=== PATIENT | male | born 1985 | race Two or more races ===

== ENCOUNTER → 2022-01-06 | Emergency (ER) | payer OTHER | END | disposition left against medical advice (07) | LOC: EDUNIT# 22:43 → EDBD 22:46 → ER 22:50 | DX: R52 Pain, unspecified (principal); Z53.21 Procedure and treatment not carried out due to patient leaving prior to being seen by health care provider ==

== ENCOUNTER → 2022-01-18 | Emergency (ER) | payer MEDICAID, OTHER ==
[~2022-01-18] MED LIST: ONDANSETRON ODT 4 MG TAB PO ONE
== END | disposition home or self-care (01) ==
LOC: EDUNIT# 15:42 → EDBD 15:49 → ER 15:49
DX: F10.129 Alcohol abuse with intoxication, unspecified (principal); Y90.9 Presence of alcohol in blood, level not specified

== ENCOUNTER 2022-02-09 23:01 | Emergency (ER) | payer MEDICAID ==
[~2022-02-09] VITALS: Ht 162.6 cm; Wt 65.0 kg
[2022-02-09] MEDS ORDERED: SODIUM CHLORIDE 0.9% 1,000 ML IV ONE (23:15)
[2022-02-09] MEDS ORDERED: ONDANSETRON HCL 4 MG/2 ML VIAL IV ONE (23:15)
[2022-02-09 23:31] LABS: Basophils # (auto) 0 10 ^3/uL (0-0.2); Eosinophils # (auto) 0 10 ^3/uL (0-0.8); Lymphocytes # (auto) 1.3 10 ^3/uL (0.4-5.4); Monocytes # (auto) 0.3 10 ^3/uL (0-1.3); Neutrophils # (auto) 2.7 10 ^3/uL (1.6-8.6); Red Blood Cells 3.81 10^6/uL (4.5-5.90); White Blood Cell 4.3 10^3/uL (4.4-10.8)
[2022-02-09 23:33] LABS: Basophils % (auto) 0.4 % (0.0-2.0); Eosinophils % (auto) 0.5 % (0.0-7.0); Hemoglobin 12.8 g/dL (13.5-17.5); Lymphocytes % (auto) 29.5 % (10.0-50.0); Mean Corpuscular Hemoglobin 33.5 pg (28.0-32.0); Mean Corpuscular Hgb Conc. 32.8 g/dL (32.0-36.0); Mean Corpuscular Volume 102.4 fL (80.0-100.0); Monocytes % (auto) 6.8 % (0.0-12.0); Neutrophils % (auto) 62.8 % (37.0-80.0); Nucleated Red Blood Cells % 0.1 %; Red Cell Distribution Width 14.5 % (11.8-14.3)
[2022-02-09 23:51] LABS: Albumin 3.9 g/dL (3.4-5.0); BUN/Creatinine Ratio 6.2; Calcium 8.3 mg/dL (8.5-10.1); Potassium 4.2 mmol/L (3.5-5.1)
[2022-02-09 23:53] LABS: Bilirubin, Total 0.5 mg/dL (0.2-1.0); Total Protein 8.1 g/dL (6.4-8.2)
[2022-02-10 05:20] VITALS: BP 115/64
== END 2022-02-10 05:29 | disposition home or self-care (01) ==
LOC: EDBD 23:01 → ER 23:01 → EDUNIT# 23:01 → ER 02-10 05:29
DX: F10.129 Alcohol abuse with intoxication, unspecified (principal); Y90.8 Blood alcohol level of 240 mg/100 ml or more
CPT/HCPCS: 36415; 71045; 80053; 83690; 84484; 85025; 96360; 99284; J7030

== ENCOUNTER 2022-08-07 05:26 | Emergency (ER) | payer MEDICAID ==
[~2022-08-07] VITALS: Ht 162.6 cm; Wt 70.4 kg
[2022-08-07 07:14] LABS: Basophils # (auto) 0 10 ^3/uL (0-0.2); Basophils % (auto) 0.9 % (0.0-2.0); Eosinophils # (auto) 0 10 ^3/uL (0-0.8); Eosinophils % (auto) 0.3 % (0.0-7.0); Hematocrit 33.6 % (41.0-53.0); Hemoglobin 11.3 g/dL (13.5-17.5); Lymphocytes % (auto) 20.4 % (10.0-50.0); Mean Corpuscular Hemoglobin 33.4 pg (28.0-32.0); Mean Corpuscular Hgb Conc. 33.7 g/dL (32.0-36.0); Mean Corpuscular Volume 99.1 fL (80.0-100.0); Monocytes # (auto) 0.3 10 ^3/uL (0-1.3); Monocytes % (auto) 7.2 % (0.0-12.0); Neutrophils # (auto) 3.4 10 ^3/uL (1.6-8.6); Neutrophils % (auto) 71.2 % (37.0-80.0); Red Blood Cells 3.39 10^6/uL (4.5-5.90); Red Cell Distribution Width 15.7 % (11.8-14.3); White Blood Cell 4.8 10^3/uL (4.4-10.8)
[2022-08-07 07:36] LABS: Albumin 3.9 g/dL (3.4-5.0); BUN/Creatinine Ratio 12.3; Calcium 8.7 mg/dL (8.5-10.1); Potassium 3.8 mmol/L (3.5-5.1)
[2022-08-07 07:39] LABS: Bilirubin, Total 0.6 mg/dL (0.2-1.0); Total Protein 7.9 g/dL (6.4-8.2)
[2022-08-07] MEDS ORDERED: cefTRIAXone SOD 1,000 MG VL IM ONE (08:15)
[2022-08-07] MEDS ORDERED: BACDST PO (08:26)
[2022-08-07] MEDS ORDERED: CEPH-510 PO (08:26)
[2022-08-07] MEDS ORDERED: LIDOCAINE 1% HCL (LOCAL ANESTH.) INJ 20ML MDV ID ONE (09:15)
[2022-08-07 11:08] VITALS: BP 132/74
== END 2022-08-07 11:08 | disposition home or self-care (01) ==
LOC: ER 05:26
DX: L03.011 Cellulitis of right finger (principal); R07.89 Other chest pain; S60.031A Contusion of right middle finger without damage to nail, initial encounter; W57.XXXA Bitten or stung by nonvenomous insect and other nonvenomous arthropods, initial encounter; Y93.89 Activity, other specified; Y92.89 Other specified places as the place of occurrence of the external cause; Y99.8 Other external cause status
CPT/HCPCS: 36415; 71045; 73140; 80053; 83605; 84484; 85025; 87040; 93005; 96372; 99285; J0696

== ENCOUNTER 2022-12-17 08:17 | Emergency (ER) | payer MEDICAID ==
[~2022-12-17] VITALS: Ht 160 cm; Wt 65.1 kg
[~2022-12-17 08:17] MED LIST changes: +BACDST PO; +CEPH-510 PO; -ONDANSETRON ODT 4 MG TAB PO ONE
[2022-12-17 09:14] LABS: Basophils # (auto) 0.1 10 ^3/uL (0-0.2); Basophils % (auto) 1.2 % (0.0-2.0); Eosinophils # (auto) 0.1 10 ^3/uL (0-0.8); Hematocrit 36.4 % (41.0-53.0); Hemoglobin 12.5 g/dL (13.5-17.5); Lymphocytes # (auto) 2.6 10 ^3/uL (0.4-5.4); Lymphocytes % (auto) 51.5 % (10.0-50.0); Mean Corpuscular Hemoglobin 32.7 pg (28.0-32.0); Mean Corpuscular Hgb Conc. 34.3 g/dL (32.0-36.0); Mean Corpuscular Volume 95.6 fL (80.0-100.0); Monocytes # (auto) 0.7 10 ^3/uL (0-1.3); Neutrophils # (auto) 1.7 10 ^3/uL (1.6-8.6); Neutrophils % (auto) 33.3 % (37.0-80.0); Nucleated Red Blood Cells % 0.6 %; Red Blood Cells 3.81 10^6/uL (4.5-5.90); Red Cell Distribution Width 15.3 % (11.8-14.3); White Blood Cell 5.1 10^3/uL (4.4-10.8)
[2022-12-17 09:32] LABS: Albumin 4.3 g/dL (3.4-5.0); Calcium 8.6 mg/dL (8.5-10.1); Potassium 3.6 mmol/L (3.5-5.1)
[2022-12-17 09:39] LABS: BUN/Creatinine Ratio 6.9 (10.0-20.0); Bilirubin, Total 0.6 mg/dL (0.2-1.0); Total Protein 8.7 g/dL (6.4-8.2)
[2022-12-17 10:07] LABS: INR 0.9 (0.9-1.15); Partial Thromboplastin Time 22.5 sec (24.6-33.4)
[2022-12-17 12:39] LABS: Urine Bacteria NONE SEEN /hpf (None Seen); Urine Blood Negative /uL (Negative); Urine Specific Gravity 1.002 (1.001-1.035); Urine WBC <1 /hpf (0 - 3)
[2022-12-17 17:15] VITALS: BP 115/80
== END 2022-12-17 17:30 | disposition home or self-care (01) ==
LOC: ER 08:17
DX: S40.022A Contusion of left upper arm, initial encounter (principal); F10.129 Alcohol abuse with intoxication, unspecified; M79.601 Pain in right arm; M25.512 Pain in left shoulder; M25.511 Pain in right shoulder; Y90.8 Blood alcohol level of 240 mg/100 ml or more; W18.39XA Other fall on same level, initial encounter; Y93.89 Activity, other specified; Y92.89 Other specified places as the place of occurrence of the external cause; Y99.8 Other external cause status
CPT/HCPCS: 36415; 70450; 71045; 73060; 80053; 80320; 81001; 85025; 85610; 85730

== ENCOUNTER 2023-02-15 14:01 | Emergency (ER) | payer MEDICAID ==
[~2023-02-15] VITALS: Ht 165.1 cm; Wt 65.0 kg
[2023-02-15 14:12] VITALS: BP 120/69; PULSE 85; RESP 16; O2SAT 100
[2023-02-15] MEDS ORDERED: SODIUM CHLORIDE 0.9% 1,000 ML IVB ONE (14:15)
[2023-02-15 14:58] LABS: Basophils # (auto) 0.1 10 ^3/uL (0-0.2); Basophils % (auto) 1.4 % (0.0-2.0); Eosinophils # (auto) 0 10 ^3/uL (0-0.8); Eosinophils % (auto) 0.4 % (0.0-7.0); Hemoglobin 13.8 g/dL (13.5-17.5); Lymphocytes # (auto) 1.1 10 ^3/uL (0.4-5.4); Lymphocytes % (auto) 27.8 % (10.0-50.0); Mean Corpuscular Hemoglobin 32.5 pg (28.0-32.0); Mean Corpuscular Hgb Conc. 33.7 g/dL (32.0-36.0); Mean Corpuscular Volume 96.4 fL (80.0-100.0); Monocytes # (auto) 0.3 10 ^3/uL (0-1.3); Monocytes % (auto) 8.6 % (0.0-12.0); Neutrophils # (auto) 2.5 10 ^3/uL (1.6-8.6); Neutrophils % (auto) 61.8 % (37.0-80.0); Nucleated Red Blood Cells % 0.6 %; Red Blood Cells 4.25 10^6/uL (4.5-5.90); Red Cell Distribution Width 15.8 % (11.8-14.3); White Blood Cell 4.1 10^3/uL (4.4-10.8)
[2023-02-15 15:03] LABS: Albumin 3.8 g/dL (3.4-5.0); Calcium 8.6 mg/dL (8.5-10.1); Potassium 3.6 mmol/L (3.5-5.1)
[2023-02-15 15:09] LABS: BUN/Creatinine Ratio 7.8 (10.0-20.0); Bilirubin, Total 0.2 mg/dL (0.2-1.0); Total Protein 8.4 g/dL (6.4-8.2)
== END 2023-02-15 16:24 | disposition left against medical advice (07) ==
LOC: EDBD 14:01 → ER 14:01
DX: F10.129 Alcohol abuse with intoxication, unspecified (principal); R41.82 Altered mental status, unspecified; Y90.8 Blood alcohol level of 240 mg/100 ml or more
CPT/HCPCS: 36415; 70450; 80053; 80320; 85025; 96360; 99284; J7030

== ENCOUNTER 2023-03-01 12:52 | Emergency (ER) | payer MEDICAID ==
[~2023-03-01] VITALS: Ht 162.6 cm; Wt 68.0 kg
[2023-03-01] MEDS ORDERED: SODIUM CHLORIDE 0.9% 1,000 ML IVB ONE (13:00)
[2023-03-01 13:46] LABS: Basophils # (auto) 0 10 ^3/uL (0-0.2); Basophils % (auto) 0.9 % (0.0-2.0); Eosinophils # (auto) 0 10 ^3/uL (0-0.8); Eosinophils % (auto) 0.5 % (0.0-7.0); Hematocrit 37.9 % (41.0-53.0); Hemoglobin 12.3 g/dL (13.5-17.5); Lymphocytes # (auto) 1.6 10 ^3/uL (0.4-5.4); Lymphocytes % (auto) 42.7 % (10.0-50.0); Mean Corpuscular Hemoglobin 31.9 pg (28.0-32.0); Mean Corpuscular Hgb Conc. 32.5 g/dL (32.0-36.0); Mean Corpuscular Volume 98.2 fL (80.0-100.0); Monocytes # (auto) 0.3 10 ^3/uL (0-1.3); Monocytes % (auto) 6.9 % (0.0-12.0); Neutrophils # (auto) 1.8 10 ^3/uL (1.6-8.6); Nucleated Red Blood Cells % 0.2 %; Red Blood Cells 3.86 10^6/uL (4.5-5.90); Red Cell Distribution Width 16.1 % (11.8-14.3); White Blood Cell 3.7 10^3/uL (4.4-10.8)
[2023-03-01 13:55] LABS: Albumin 3.4 g/dL (3.4-5.0); Potassium 3.4 mmol/L (3.5-5.1)
[2023-03-01 14:03] LABS: BUN/Creatinine Ratio 7.4 (10.0-20.0)
[2023-03-01 14:04] LABS: Bilirubin, Total 0.4 mg/dL (0.2-1.0); Total Protein 7.5 g/dL (6.4-8.2)
[2023-03-01 15:05] VITALS: BP 105/63; PULSE 60; RESP 14; TEMP 97.9; O2SAT 90
[2023-03-01 15:15] VITALS: PULSE 60
== END 2023-03-01 18:18 | disposition left against medical advice (07) ==
LOC: EDBD 12:52 → ER 12:52
DX: F10.129 Alcohol abuse with intoxication, unspecified (principal); Z79.899 Other long term (current) drug therapy; Y90.0 Blood alcohol level of less than 20 mg/100 ml
CPT/HCPCS: 36415; 80053; 80320; 85025; 96360; 99283; J7030

== ENCOUNTER 2024-03-22 18:05 | Emergency (ER) | payer MEDICAID ==
[~2024-03-22] VITALS: Ht 170.2 cm; Wt 68.1 kg
[2024-03-22 18:34] VITALS: RESP 14; O2SAT 97
[2024-03-22] MEDS: SODIUM CHLORIDE 0.9% 2,000 ML IV ONE (18:36)
[2024-03-22 19:07] LABS: Basophils # (auto) 0 10 ^3/uL (0-0.2); Eosinophils # (auto) 0 10 ^3/uL (0-0.8); Lymphocytes # (auto) 1.3 10 ^3/uL (0.4-5.4); Neutrophils # (auto) 2.9 10 ^3/uL (1.6-8.6); Nucleated Red Blood Cells % 0.1 %
[2024-03-22 19:09] LABS: Basophils % (auto) 0.9 % (0.0-2.0); Eosinophils % (auto) 0.4 % (0.0-7.0); Hematocrit 38.1 % (41.0-53.0); Hemoglobin 12.9 g/dL (13.5-17.5); Lymphocytes % (auto) 28.2 % (10.0-50.0); Mean Corpuscular Hemoglobin 32.7 pg (28.0-32.0); Mean Corpuscular Hgb Conc. 33.9 g/dL (32.0-36.0); Mean Corpuscular Volume 96.4 fL (80.0-100.0); Monocytes # (auto) 0.4 10 ^3/uL (0-1.3); Monocytes % (auto) 7.6 % (0.0-12.0); Neutrophils % (auto) 62.9 % (37.0-80.0); Red Blood Cells 3.95 10^6/uL (4.5-5.90); Red Cell Distribution Width 15.7 % (11.8-14.3); White Blood Cell 4.7 10^3/uL (4.4-10.8)
[2024-03-22 19:14] LABS: Chloride 106 mmol/L (98-107); Potassium 3.6 mmol/L (3.5-5.1); Sodium 138 mmol/L (136-145)
[2024-03-22 19:15] LABS: Anion Gap 10 (5-15); Carbon Dioxide 22 mmol/L (20-30)
[2024-03-22 19:16] LABS: Calcium 9.2 mg/dL (8.7-10.4)
[2024-03-22 19:21] LABS: Glucose 148 mg/dL (74-106)
[2024-03-22 19:29] LABS: BUN/Creatinine Ratio 5.8 (10.0-20.0); Blood Urea Nitrogen < 5 mg/dL (9-23)
[2024-03-22 19:39] LABS: Blood Alcohol 501.9 mg/dL (<10)
[2024-03-22 19:48] LABS: Platelet Estimate Decreased
[2024-03-22 19:49] LABS: Platelet Count (auto) 84 10^3/uL (140-450)
[2024-03-22 20:43] VITALS: TEMP 97.6
[2024-03-22 21:35] VITALS: PULSE 88; RESP 16; O2SAT 98
[2024-03-22 22:52] VITALS: BP 124/72; PULSE 84; RESP 14; O2SAT 97
== END 2024-03-22 23:13 | disposition home or self-care (01) ==
LOC: ER 18:05 → EDBD 18:05 → ER 23:13
DX: F10.129 Alcohol abuse with intoxication, unspecified (principal); R56.9 Unspecified convulsions; Z79.899 Other long term (current) drug therapy; Y90.0 Blood alcohol level of less than 20 mg/100 ml
CPT/HCPCS: 36415; 80048; 80320; 85025; 96360; 96361; 99285; J7030

== ENCOUNTER 2024-06-05 14:43 | Emergency (ER) | payer MEDICAID ==
[2024-06-05] MEDS ORDERED: THIAMINE 100mg/ml INJ (200mg/2ml VIAL) IV ONE (15:00)
[2024-06-05] MEDS ORDERED: SODIUM CHLORIDE 0.9% 1,000 ML IV ONE ×2 (15:00)
--- NOTE | 2024-06-05 15:04 | ED.PDOC ---
Altered Mental Status HPI Comments 39 year old male HRARY presents to the ED with chief complaint of ETOH abuse. EMS reports patient was found by a bystander laying back on a concrete sidewalk. Patient relays that he has been experiencing SOB, but was noted to be intoxicated with ETOH. Patient denies any N/V/D, chest pain, SOB, dizziness, headache, or fever. Time Seen by MD: 14:58 Primary Care Provider: UNKNOWN Reviewed Notes: Nurses Notes, Auto Body Estimator Notes, Medications, Allergies Allergies: Coded Allergies: NO KNOWN ALLERGIES (Unverified , 02/09/22) Home Meds Active Scripts Sulfamethoxazole W/Trimethopri (Bactrim Ds Tablet) 1 Tab Tb, 1 TAB PO BID for 10 Days, #20 TAB 0 Refills Prov:MADELINE RAMIREZ INSTRUCTIONAL DEVELOPER 08/07/22 Cephalexin ( Keflex 500) 500 Mg Cap, 1 CAP PO QID for 10 Days, #40 CAP 0 Refills Prov:MADELINE RAMIREZ [facility] 08/07/22 Information Source: Patient, Emergency Med Personnel Mode of Arrival: EMS Severity: Moderate Timing: Hours Duration: Since onset Prehospital treatment: None Quality: Change in Behavior Recent: None History of: None Past Medical History PAST MEDICAL HISTORY: Seizures Surgical History: Denies all surgeries Family History Family History: No family hx of Cancer, No family hx of DM, No family hx of Heart echo, No family hx of HTN, No family hx ofKidney echo, No family hx of Liver echo, No family hx of Lung echo, No family hx of Stroke Social History Smoker: Non-Smoker Alcohol: Heavy Drugs: Denies Drug Use Lives In: Home Constitutional: denies: chills, diaphoresis, fatigue, fever, malaise, sweats, weakness, others EENTM: denies: blurred vision, double vision, ear bleeding, ear discharge, ear drainage, ear pain, ear ringing, eye pain, eye redness, hearing loss, mouth pain, mouth swelling, nasal discharge, nose bleeding, nose congestion, nose pain, photophobia, tearing, throat pain, throat swelling, voice changes, others Respiratory: reports: shortness of breath; denies: cough, hemoptysis, orthopnea, SOB at rest, SOB with excertion, stridor, wheezing, others Cardiovascular: denies: chest pain, dizzy spells, diaphoresis, Dyspnea on exertion, edema, irregular heart beat, left arm pain, lightheadedness, palpitations, PND, syncope, others Gastrointestinal: denies: abdomen distended, abdominal pain, blood streaked bowels, constipated, diarrhea, dysphagia, difficulty swallowing, hematemesis, melena, nausea, poor appetite, poor fluid intake, rectal bleeding, rectal pain, vomiting, others Genitourinary: denies: burning, dysuria, flank pain, frequency, hematuria, incontinence, penile discharge, penile sore, pain, testicle pain, testicle swelling, urgency, others Neurological: denies: dizziness, fainting, headache, left sided numbness, left sided weakness, numbness, paresthesia, pre-existing deficit, right sided numbness, right sided weakness, seizure, speech problems, tingling, tremors, w eakness, others Musculoskeletal: denies: back pain, gout, joint pain, joint swelling, muscle pain, muscle stiffness, neck pain, others Integumetry: denies: bruises, change in color, change in hair/nails, dryness, laceration, lesions, lumps, rash, wounds, others Allergic/Immunocompromised: denies: Difficulty Healing, Frequent Infections, Hives, Itching, others Hematologic/Lymphatic: denies: anemia, blood clots, easy bleeding, easy bruising, swollen glands, others Endocrine: denies: excessive hunger, excessive sweating, excessive thirst, excessive urination, flushing, intolerance to cold, intolerance to heat, unexplained weight gain, unexplained weight loss, others Psychiatric: denies: anxiety, bipolar disorder, depression, hopeless, panic disorder, schizophrenia, sleepless, suicidal, others All Other Systems: Reviewed and Negative Physical Exam General Appearance: Moderate Distress, Normal HEENT: Normal ENT Inspection, PERRL/EOMI Neck: Full Range of Motion, Non-Tender, Normal, Normal Inspection Respiratory: Chest Non-Tender, Lungs Clear, No Accessory Muscle Use, No Respiratory Distress, Normal Breath Sounds Cardiovascular: No Edema, No JVD, No Murmur, No Gallop, Normal Peripheral Pulses, Regular Rate/Rhythm Breast Exam: Deferred Gastrointestinal: No Organomegaly, Non Tender, No Pulsatile Mass, Normal Bowel Sounds, Soft Genitalia: Deferred Pelvic: Deferred Rectal: Deferred Extremities: No calf tenderness, Normal capillary refill, Normal inspection, Normal range of motion, Non-tender, No pedal edema Musculoskeletal : Apperance: Normal Neurologic: Alert, carpenter refrigerator II-XII nml as Tested, No Motor Deficits, Normal Affect, Normal Mood, No Sensory Deficits Cerebellar Function: NOT DONE Reflexes: NOT DONE Skin: Dry, Normal Color, Warm Peripheral Pulses: 3+ Radial (R), 3+ Radial (L) Lymphatic: No Adenopathy Was a procedure done? Was a procedure done?: No Differential Diagnosis (ALOC) Differential Diagnosis: Dehydration, DKA, ETOH Intoxication X-Ray, Labs, Meds, VS Patient alert. Alcohol abuse. Vitals stable. Answering all questions. Reviewed his previous visit. Establish intravenous access. Was given fluids. Was given thiamine. He is comfortable. Explained to the patient. Counseled patient on effects of drinking alcohol for 15 minutes. Was told to join alcoholic anonymous. Continue cardiac monitoring. Time of 1ST Reevaluation: 15:58 Reevaluation 1ST: Unchanged Patient Education/Counseling: Diagnosis, Treatment Family Education/Counseling: No Family Present Departure 1 Departure Time of Disposition: 15:07 Impression: Primary Impression: Alcohol intoxication Qualified Codes: F10.920 - Alcohol use, unspecified with intoxication, uncomplicated Disposition: 09 ADMITTED INPATIENT Admit to: Med Surg Condition: Guarded Critical Care Note Critical Care Time?: No Stability Stability form required: No Heart Score Heart Score: Heart Score Response (Comments) Value History N/A 0 EKG N/A 0 Age N/A 0 Risk Factors N/A 0 Troponin N/A 0 Total 0 I personally scribed for ASHLEY BOX MD ([email or web address]) on 06/05/24 at 15:04. Electronically submitted by Tom Torres ([email or web address]). ASHLEY BOX MD Jun 05, 2024 15:04
== END 2024-06-05 17:06 | disposition left against medical advice (07) ==
LOC: EDBD 14:43 → ER 14:43
DX: F10.129 Alcohol abuse with intoxication, unspecified (principal)

== ENCOUNTER 2024-07-21 15:20 | Emergency (ER) | payer MEDICAID ==
[~2024-07-21] VITALS: Ht 165.1 cm; Wt 68.1 kg
--- NOTE | 2024-07-21 15:42 | ED.PDOC ---
History of Present Illness HPI Comments 39 y/o M, with a Hx of seizures and EtOH abuse, is BIBA for c/o ALOC w/decrease responsiveness s/p EtOH intoxication, today. Per EMS report, bystanders called after finding the patient outside a private residence unconscious, with EtOH odor emanating from his breath, and being unable to awaken him. On scene, patient was still unresponsive to EMS staff attempts to awaken him, with pinpoint pupils and all remaining vitals within normal limits. En route, patient had IV access placed and began to respond to sternal rub. At time of assessment, patient still remained in intoxicated, unconscious state, with no additional symptoms reported by EMS staff. Further Hx cannot be obtained at this time, due to patient's condition and absence of family/nickel plater historians. Chief Complaint: ALOC Time Seen by MD: 15:30 Primary Care Provider: UNKNOWN Reviewed Notes: Nurses Notes, Operational Test Mechanic Notes, Medications, Allergies Allergies: Coded Allergies: NO KNOWN ALLERGIES (Unverified , 02/09/22) Home Meds Active Scripts Sulfamethoxazole W/Trimethopri (Bactrim Ds Tablet) 1 Tab Tb, 1 TAB PO BID for 10 Days, #20 TAB 0 Refills Prov:MADELINE RAMIREZ [facility] 08/07/22 Cephalexin ( Keflex 500) 500 Mg Cap, 1 CAP PO QID for 10 Days, #40 CAP 0 Refills Prov:MADELINE RAMIREZ [facility] 08/07/22 Information Source: Emergency Med Personnel Mode of Arrival: EMS Severity: Moderate Timing: Hours Duration: Since onset Prehospital treatment: 12 Lead EKG, Community Service Aide, Other (IV access) Past Medical History PAST MEDICAL HISTORY: Seizures Surgical History: Denies all surgeries Family History Family History: No family hx of Cancer, No family hx of DM, No family hx of Heart echo, No family hx of HTN, No family hx ofKidney echo, No family hx of Liver echo, No family hx of Lung ecoh, No family hx of Stroke Social History Smoker: Non-Smoker Alcohol: Heavy Drugs: Denies Drug Use Lives In: Home Neurological: reports: others (ALOC w/decrease responsiveness ) Physical Exam General Appearance: Moderate Distress HEENT: Normal ENT Inspection, Pharynx Normal, TMs Normal Neck: Full Range of Motion, Non-Tender, Normal, Normal Inspection Respiratory: Chest Non-Tender, Lungs Clear, No Accessory Muscle Use, No Respiratory Distress, Normal Breath Sounds Cardiovascular: No Edema, No JVD, No Murmur, No Gallop, Normal Peripheral Pulses, Regular Rate/Rhythm Breast Exam: Deferred Gastrointestinal: No Organomegaly, Non Tender, No Pulsatile Mass, Normal Bowel Sounds, Soft Genitalia: Deferred Pelvic: Deferred Rectal: Deferred Extremities: No calf tenderness, Normal capillary refill, Normal inspection, Normal range of motion, Non-tender, No pedal edema Musculoskeletal : Apperance: Normal Neurologic: Alert Cerebellar Function: NOT DONE Reflexes: NOT DONE Skin: Normal Color Peripheral Pulses: 3+ Radial (R), 3+ Radial (L) Lymphatic: No Adenopathy Was a procedure done? Was a procedure done?: No Differential Dx Considerations may include: EtOH intoxication, substance abuse, encephalopathy X-Ray, Labs, Meds, VS Vital Signs Date Time Temp Pulse Resp B/P (MAP) Pulse Ox O2 Delivery O2 Flow Rate FiO2 07/21/24 15:20 98.2 76 22 118/79 (92) 94 Patient opens his eyes to command. History of alcohol use. Comes here on a regular basis. Vitals stable. No obvious injuries. Moving all extremities. CT of the head was not done because he is responding. Establish intravenous access. Was given fluids. Was given thiamine. Reviewed his previous visit. Explained to the patient. Time of 1ST Reevaluation: 16:00 Reevaluation 1ST: Improved Patient Education/Counseling: Other (patient is altered ) Family Education/Counseling: No Family Present Departure 1 Departure Time of Disposition: 16:00 Impression: Primary Impression: Alcohol intoxication Qualified Codes: F10.920 - Alcohol use, unspecified with intoxication, uncomplicated Disposition: 09 ADMITTED INPATIENT Admit to: Med Surg Condition: Guarded Critical Care Note Critical Care Time?: No Stability Stability form required: No Heart Score Heart Score: Heart Score Response (Comments) Value History N/A 0 EKG N/A 0 Age N/A 0 Risk Factors N/A 0 Troponin N/A 0 Total 0 I personally scribed for ASHLEY BOX MD ([email or web address]) on 07/21/24 at 15:41. Electronically submitted by Lisandro Giron ([email or web address]). ASHLEY BOX MD Jul 21, 2024 15:41
[2024-07-21] MEDS: SODIUM CHLORIDE 0.9% 1,000 ML IV ONE (15:45)
[2024-07-21 16:13] LABS: Basophils # (auto) 0 10 ^3/uL (0-0.2); Basophils % (auto) 0.6 % (0.0-2.0); Eosinophils # (auto) 0 10 ^3/uL (0-0.8); Eosinophils % (auto) 0.5 % (0.0-7.0); Hematocrit 41.1 % (41.0-53.0); Hemoglobin 13.8 g/dL (13.5-17.5); Lymphocytes # (auto) 1.9 10 ^3/uL (0.4-5.4); Lymphocytes % (auto) 36.6 % (10.0-50.0); Mean Corpuscular Hemoglobin 32.8 pg (28.0-32.0); Mean Corpuscular Hgb Conc. 33.7 g/dL (32.0-36.0); Mean Corpuscular Volume 97.5 fL (80.0-100.0); Monocytes # (auto) 0.4 10 ^3/uL (0-1.3); Monocytes % (auto) 7.6 % (0.0-12.0); Neutrophils # (auto) 2.8 10 ^3/uL (1.6-8.6); Neutrophils % (auto) 54.7 % (37.0-80.0); Nucleated Red Blood Cells % 0.1 %; Platelet Count (auto) 211 10^3/uL (140-450); Red Blood Cells 4.22 10^6/uL (4.5-5.90); Red Cell Distribution Width 14.3 % (11.8-14.3); White Blood Cell 5.2 10^3/uL (4.4-10.8)
[2024-07-21 16:23] LABS: Chloride 103 mmol/L (98-107); Potassium 3.7 mmol/L (3.5-5.1); Sodium 137 mmol/L (136-145)
[2024-07-21 16:24] LABS: Anion Gap 11 (5-15); Calcium 9.6 mg/dL (8.7-10.4); Carbon Dioxide 23 mmol/L (20-31)
[2024-07-21 16:29] LABS: Glucose 93 mg/dL (74-106)
[2024-07-21 16:33] LABS: BUN/Creatinine Ratio 6.8 (10.0-20.0); Blood Urea Nitrogen < 5 mg/dL (9-23)
[2024-07-21 17:17] LABS: Blood Alcohol 525.1 mg/dL (<10)
[2024-07-21] MEDS: THIAMINE 100mg/ml INJ (200mg/2ml VIAL) IV ONE (17:54)
[2024-07-21] MEDS: SODIUM CHLORIDE 0.9% 1,000 ML IVB ONE (17:54)
[2024-07-21 20:18] VITALS: BP 136/66; PULSE 94; RESP 14; TEMP 98.2; O2SAT 100
--- NOTE | 2024-07-21 20:18 | ED.PDOC ---
Departure 1 Departure Time of Disposition: 20:17 (He is now clinically sober A&O x3 and wants to go home. Family we will take him home he lives down the [address].) Impression: Primary Impression: Alcohol intoxication Qualified Codes: F10.920 - Alcohol use, unspecified with intoxication, uncomplicated Disposition: HOME / SELF CARE / HOMELESS Condition: Stable Additional Instructions: You were intoxicated. It is important to only drink in moderation. If you need help quitting you can call (HELP). If your symptoms worsen or you have any other concerns then please return to the ER. Discharged With: Self KIERSTEN WELLS MD Jul 21, 2024 20:18
== END 2024-07-21 20:18 | disposition home or self-care (01) ==
LOC: EDBD 15:20 → ER 15:20
DX: F10.129 Alcohol abuse with intoxication, unspecified (principal); Z79.899 Other long term (current) drug therapy; Y90.8 Blood alcohol level of 240 mg/100 ml or more
CPT/HCPCS: 36415; 80048; 80320; 85025; 96361; 96374; 99283; J3411; J7030

== ENCOUNTER 2024-07-21 22:29 | Emergency (ER) | payer MEDICAID ==
[~2024-07-21] VITALS: Ht 157.5 cm; Wt 66.5 kg
--- NOTE | 2024-07-21 23:29 | DVH ---
CLINICAL HISTORY: fall with headstrike TECHNIQUE: Helical imaging carried out from skull base to vertex without intravenous contrast. This e xam was performed according to our departmental dose optimization program. Up-to-date CT equipment an d radiation dose reduction techniques are utilized as appropriate. CTDIVol: [CTDIvol] mGy DLP: 1150.79 mGy-cm WID: COMPARISON: CT HEAD WITHOUT CONTRAST on DOS: 02/15/23, FINDINGS: There is generalized cerebral volume loss with concordant prominence of the subarachnoid spaces and v entricles. There is no midline shift or mass effect. The cazares white matter interfaces are maintained. The basal cisterns are patent. There is no evidence of acute intracranial hemorrhage or extra-axial fluid anisha ection. The mastoid air cells and visualized paranasal sinuses are well-aerated. Prior right partial ethmoidectomies. Cerumen in the left external auditory canal. Partially imaged scattered dental monica s in the maxillary teeth IMPRESSION: 1. No acute intracranial abnormality. 2. Generalized cerebral volume loss, greater than expected for patient age. 3. Partially imaged scattered dental caries in maxillary teeth.
--- NOTE | 2024-07-21 23:52 | ED.PDOC ---
History of Present Illness HPI Comments 39M with a history of alcoholism presents with a fall. Patient was discharged from the ER tonight after sobering up and went to the store bought liquor and began drinking. He then reports he was walking back home when he tripped and hit his head. Chief Complaint: Fall Injury Time Seen by MD: 22:49 Primary Care Provider: UNKNOWN Allergies: Coded Allergies: NO KNOWN ALLERGIES (Unverified , 02/09/22) Home Meds Active Scripts Sulfamethoxazole W/Trimethopri (Bactrim Ds Tablet) 1 Tab Tb, 1 TAB PO BID for 10 Days, #20 TAB 0 Refills Prov:MADELINE RAMIREZ VISUAL MERCHANDISING COORDINATOR 08/07/22 Cephalexin ( Keflex 500) 500 Mg Cap, 1 CAP PO QID for 10 Days, #40 CAP 0 Refills Prov:MADELINE RAMIREZ VISUAL MERCHANDISING COORDINATOR 08/07/22 Information Source: Patient Mode of Arrival: Ambulatory Past Medical History PAST MEDICAL HISTORY: Seizures Surgical History: Denies all surgeries Family History Family History: No family hx of Cancer, No family hx of DM, No family hx of Heart echo, No family hx of HTN, No family hx ofKidney echo, No family hx of Liver echo, No family hx of Lung echo, No family hx of Stroke Social History Smoker: Non-Smoker Alcohol: Heavy Drugs: Denies Drug Use Lives In: Home Unable to Obtain due to: Altered Mental Status Physical Exam General Appearance: Other (Intoxicated) HEENT: PERRL/EOMI Neck: Full Range of Motion, Non-Tender, Normal, Normal Inspection Respiratory: Chest Non-Tender, Lungs Clear, No Accessory Muscle Use, No Respiratory Distress, Normal Breath Sounds Cardiovascular: No Edema, No JVD, No Murmur, No Gallop, Normal Peripheral Pulses, Regular Rate/Rhythm Breast Exam: Deferred Gastrointestinal: No Organomegaly, Non Tender, No Pulsatile Mass, Normal Bowel Sounds, Soft Genitalia: Deferred Pelvic: Deferred Rectal: Deferred Extremities: Normal inspection Neurologic: Other (slurred speach) Cerebellar Function: NOT DONE Reflexes: NOT DONE Skin: NOT DONE Lymphatic: No Adenopathy Was a procedure done? Was a procedure done?: No Differential Dx Considerations may include: intracranial injury, alcohol intoxication Time of 1ST Reevaluation: 23:51 (Patient is still intoxicated) Reevaluation 1ST: Unchanged Patient Education/Counseling: Diagnosis, Treatment Family Education/Counseling: No Family Present Departure 1 Departure Time of Disposition: 23:52 (Patients ct scan was benign. Will observe until clinically sober.) Impression: Primary Impression: Alcohol intoxication Qualified Codes: F10.920 - Alcohol use, unspecified with intoxication, uncomplicated Additional Impression: Fall Qualified Codes: W19.XXXA - Unspecified fall, initial encounter Disposition: 30 STILL A PATIENT Condition: Fair Critical Care Note Critical Care Time?: No Stability Stability form required: No Heart Score Heart Score: Heart Score Response (Comments) Value History N/A 0 EKG N/A 0 Age N/A 0 Risk Factors N/A 0 Troponin N/A 0 Total 0 KIERSTEN WELLS MD Jul 21, 2024 23:52
[2024-07-22 07:54] VITALS: BP 94/56; PULSE 83; RESP 18; TEMP 98; O2SAT 98
== END 2024-07-22 10:48 | disposition left against medical advice (07) ==
LOC: ER 22:29
DX: F10.129 Alcohol abuse with intoxication, unspecified (principal); K02.9 Dental caries, unspecified; R41.82 Altered mental status, unspecified; W01.0XXA Fall on same level from slipping, tripping and stumbling without subsequent striking against object, initial encounter; Y93.01 Activity, walking, marching and hiking; Y92.89 Other specified places as the place of occurrence of the external cause; Y99.8 Other external cause status
CPT/HCPCS: 70450

== ENCOUNTER 2024-07-30 21:20 | Inpatient (IN) | payer MEDICAID ==
[~2024-07-30] VITALS: Ht 167.6 cm; Wt 67.8 kg
--- NOTE | 2024-07-30 22:03 | ED.PDOC ---
History of Present Illness HPI Comments 39 y/o M, with a Hx of EtOH abuse, is BIBA for c/o seizure-like activity, today. Per EMS report, patient's family called after suspecting on patient having an unwitnessed seizure in his room, this evening, after hearing loud noise in his room and finding him altered. He is commented to have had a Hx of EtOH abuse w/accompanying frequent ED visits for intoxication but has been sober for the past 2x days. On scene, patient was post-ictal, without any noted trauma or incontinence. Upon arrival to ED, patient was commented to have returned back to baseline and is resting. Patient has no other reported associated symptoms at this time. Chief Complaint: ALOC Time Seen by MD: 21:40 Primary Care Provider: UNKNOWN Reviewed Notes: Nurses Notes, Sheet Metal Engineer Notes, Medications, Allergies Allergies: Coded Allergies: NO KNOWN ALLERGIES (Unverified , 02/09/22) Home Meds Active Scripts Sulfamethoxazole W/Trimethopri (Bactrim Ds Tablet) 1 Tab Tb, 1 TAB PO BID for 10 Days, #20 TAB 0 Refills Prov:MADELINE RAMIREZ [facility] 08/07/22 Cephalexin ( Keflex 500) 500 Mg Cap, 1 CAP PO QID for 10 Days, #40 CAP 0 Refills Prov:MADELINE RAMIREZ [facility] 08/07/22 Information Source: Emergency Med Personnel Mode of Arrival: EMS Severity: Moderate Timing: Hours Duration: Since onset Prehospital treatment: 12 Lead EKG, Underground Foreman Past Medical History PAST MEDICAL HISTORY: Seizures Surgical History: Denies all surgeries Family History Family History: No family hx of Cancer, No family hx of DM, No family hx of Heart echo, No family hx of HTN, No family hx ofKidney echo, No family hx of Liver echo, No family hx of Lung echo, No family hx of Stroke Social History Smoker: Non-Smoker Alcohol: Heavy Drugs: Denies Drug Use Lives In: Home Neurological: reports: seizure All Other Systems: Reviewed and Negative (negative unless otherwise stated ab ove or in HPI) Physical Exam General Appearance: No Apparent Distress, Normal HEENT: Normal ENT Inspection, Pharynx Normal, TMs Normal Neck: Full Range of Motion, Non-Tender, Normal, Normal Inspection Respiratory: Chest Non-Tender, Lungs Clear, No Accessory Muscle Use, No Respiratory Distress, Normal Breath Sounds Cardiovascular: No Edema, No JVD, No Murmur, No Gallop, Normal Peripheral Pulses, Regular Rate/Rhythm Breast Exam: Deferred Gastrointestinal: No Organomegaly, Non Tender, No Pulsatile Mass, Normal Bowel Sounds, Soft Genitalia: Deferred Pelvic: Deferred Rectal: Deferred Extremities: No calf tenderness, Normal capillary refill, Normal inspection, Normal range of motion, Non-tender, No pedal edema Musculoskeletal : Apperance: Normal Neurologic: Alert, labor relations or personnel negotiator II-XII nml as Tested, No Motor Deficits, Normal Affect, Normal Mood, No Sensory Deficits Cerebellar Function: Normal Reflexes: Normal Skin: Dry, Normal Color, Warm Lymphatic: No Adenopathy Was a procedure done? Was a procedure done?: No Differential Dx Considerations may include: seizure, EtOH withdrawal X-Ray, Labs, Meds, VS Vital Signs Date Time Temp Pulse Resp B/P (MAP) Pulse Ox O2 Delivery O2 Flow Rate FiO2 07/31/24 01:16 97 18 138/90 (106) 97 07/31/24 00:00 100.4 100.4 07/30/24 22:20 100 18 98 Room Air* 0 21 07/30/24 22:13 98.0 100 18 153/91 (111) 98.0 07/30/24 21:29 98.0 100 24 153/91 (111) 98 Lab Test 07/31/24 00:15 07/30/24 22:24 Range/Units Lactic Acid Level 5.3 *H 5.8 *H 0.4-2.0 mmol/L White Blood Count 10.4 4.4-10.8 10^3/uL Red Blood Count 3.96 L 4.5-5.90 10^6/uL Hemoglobin 13.0 L 13.5-17.5 g/dL Hematocrit 38.6 L 41.0-53.0 % Mean Corpuscular Volume 97.7 80.0-100.0 fL Mean Corpuscular Hemoglobin 32.8 H 28.0-32.0 pg Mean Corpuscular Hemoglobin Concent 33.6 32.0-36.0 g/dL Red Cell Distribution Width 13.9 11.8-14.3 % Platelet Count 124 L 140-450 10^3/uL Mean Platelet Volume 8.4 6.9-10.8 fL Neutrophils (%) (Auto) 92.8 H 37.0-80.0 % Lymphocytes (%) (Auto) 3.0 L 10.0-50.0 % Monocytes (%) (Auto) 3.0 0.0-12.0 % Eosinophils (%) (Auto) 0.0 0.0-7.0 % Basophils (%) (Auto) 1.2 0.0-2.0 % Neutrophils # (Auto) 9.7 H 1.6-8.6 10 ^3/uL Lymphocytes # (Auto) 0.3 L 0.4-5.4 10 ^3/uL Monocytes # (Auto) 0.3 0-1.3 10 ^3/uL Eosinophils # (Auto) 0 0-0.8 10 ^3/uL Basophils # (Auto) 0.1 0-0.2 10 ^3/uL Nucleated Red Blood Cells 0.0 % Platelet Estimate Decreased Large Platelets Few Sodium Level 134 L 136-145 mmol/L Potassium Level 3.8 3.5-5.1 mmol/L Chloride Level 99 98-107 mmol/L Carbon Dioxide Level 22 20-31 mmol/L Anion Gap 13 5-15 Blood Urea Nitrogen < 5 L 9-23 mg/dL Creatinine 0.89 0.700-1.30 mg/dL Glomerular Filtration Rate Calc 113 >90 mL/min BUN/Creatinine Ratio 5.6 L 10.0-20.0 Serum Glucose 115 H 74-106 mg/dL Calcium Level 10.5 H 8.7-10.4 mg/dL Magnesium Level 1.7 1.6-2.6 mg/dL Total Bilirubin 0.8 0.2-1.0 mg/dL Aspartate Amino Transferase (AST) 35 13-40 U/L Alanine Aminotransferase (ALT) 26 7-40 U/L Alkaline Phosphatase 183 H 46-116 U/L Total Protein 8.4 H 5.7-8.2 g/dL Albumin 4.8 3.2-4.8 g/dL Levetiracetam Level Pending Plasma/Serum Blood Alcohol < 3.0 <10 mg/dL Current Medications Medications (Trade) Dose Ordered Sig/Igor Route Start Time Stop Time Status Last Admin Lorazepam (Ativan Inj) 2 mg ONCE ONCE IV 07/30/24 22:00 07/30/24 22:09 DC 07/30/24 23:15 Sodium Chloride 1,000 ml @ 1,000 mls/hr Q1H ONCE IVB 07/30/24 22:00 07/30/24 22:59 DC 07/30/24 23:40 Azithromycin 250 ml @ 125 mls/hr ONCE ONCE IV 07/31/24 00:00 07/31/24 01:59 07/31/24 01:10 Sodium Chloride 2,000 ml @ 1,000 mls/hr Q2H ONCE IV 07/31/24 00:00 07/31/24 01:59 07/31/24 00:44 Acetaminophen (Ofirmev) 1,000 mg ONCE ONCE IV 07/31/24 00:00 07/31/24 00:05 DC 07/31/24 00:42 [place] [address] Ph: [phone] DIAGNOSTIC IMAGING Diagnostic Imaging Report : [id number] Signed PATIENT: KOFI SCHMIDT ACCT: [id number] UNIT: [id number] : 1985 LOC: ER ROOM / BED: / AGE / SEX: 39 / M ADM STATUS: REG ER SERVICE 58 ORDERING PHYSICIAN: ROSE PERDUE MD PROCEDURE(s): HWOCT - HEAD WITHOUT CONTRAST REASON: aloc ORDER NUMBER(s): [id number], ACCESSION NUMBER(s): [id number] CT BRAIN WITHOUT CONTRAST HISTORY: aloc TECHNIQUE: Axial scans were obtained from the skull base through the vertex without contrast. Sagittal and coronal reformats were generated. One or more of the following radiation dose reduction techniques were used for this examination: automated exposure control, adjustment of the mA and/or kV according to patient size, use of iterative reconstruction technique. COMPARISON: CT HEAD WITHOUT CONTRAST on DOS: 07/21/24 FINDINGS: Generalized cerebral volume loss is again noted. No acute intracranial hemorrhage or evidence of large vessel territorial infarction identified at this time. No midline shift. The basilar cisterns are patent. The visualized paranasal sinuses and left mastoid air cells are clear. Partial opacification of the right mastoid air cells again noted. No grossly displaced calvarial fracture is identified. IMPRESSION: No acute intracranial findings. Other relatively chronic appearing changes as above. ATED BY: SEE LEE MD DICTATED DATE/TIME: 07/30/242247 SIGNED BY: SEE LEE MD SIGNED DATE/TIME: 07/30/242247 CC: Lactic acid is 5.8 and 5.3. 4 L of lactated ringer were ordered. Treated 100.4. The patient was given Tylenol Toradol It count is 124. Hemoglobin is 13. In is less than five and creatinine is 0.9 The patient will be admitted to the hospitalist for further evaluation and care. Time of 1ST Reevaluation: 22:10 Reevaluation 1ST: Unchanged Time of 2ND Reevaluation: 01:32 Reevaluation 2ND: Unchanged Patient Education/Counseling: Diagnosis, Treatment Family Education/Counseling: No Family Present Departure 1 Departure Time of Disposition: 01:35 Impression: Primary Impression: Altered mental status Qualified Codes: R41.82 - Altered mental status, unspecified Additional Impressions: Metabolic encephalopathy Toxic encephalopathy Qualified Codes: G92.9 - Unspecified toxic encephalopathy Thrombocytopenia Dehydration Alcohol withdrawal Disposition: ADMITTED INPATIENT Admit to: Tele Condition: Guarded Critical Care Note Critical Care Time?: Yes (45 min-critical care time only) Stability Stability form required: No Heart Score Heart Score: Heart Score Response (Comments) Value History N/A 0 EKG N/A 0 Age N/A 0 Risk Factors N/A 0 Troponin N/A 0 Total 0 I personally scribed for ROSE PERDUE MD ([email or web address]) on 07/30/24 at 22:03. Electronically submitted by Lisandro Giron ([email or web address]). I personally scribed for ROSE PERDUE MD ([email or web address]) on 07/30/24 at 23:54. Electronically submitted by Lisandro Giron ([email or web address]). ROSE PERDUE MD Jul 30, 2024 22:03
[2024-07-30 22:20] VITALS: PULSE 100; RESP 18; O2SAT 98
[2024-07-30 22:45] LABS: Basophils # (auto) 0.1 10 ^3/uL (0-0.2); Basophils % (auto) 1.2 % (0.0-2.0); Eosinophils # (auto) 0 10 ^3/uL (0-0.8); Hematocrit 38.6 % (41.0-53.0); Lymphocytes # (auto) 0.3 10 ^3/uL (0.4-5.4); Mean Corpuscular Hemoglobin 32.8 pg (28.0-32.0); Mean Corpuscular Hgb Conc. 33.6 g/dL (32.0-36.0); Mean Corpuscular Volume 97.7 fL (80.0-100.0); Monocytes # (auto) 0.3 10 ^3/uL (0-1.3); Neutrophils # (auto) 9.7 10 ^3/uL (1.6-8.6); Neutrophils % (auto) 92.8 % (37.0-80.0); Platelet Count (auto) 124 10^3/uL (140-450); Red Blood Cells 3.96 10^6/uL (4.5-5.90); Red Cell Distribution Width 13.9 % (11.8-14.3); White Blood Cell 10.4 10^3/uL (4.4-10.8)
--- NOTE | 2024-07-30 22:51 | DVH ---
CT BRAIN WITHOUT CONTRAST HISTORY: aloc TECHNIQUE: Axial scans were obtained from the skull base through the vertex without contrast. Sagitta l and coronal reformats were generated. One or more of the following radiation dose reduction techniq ues were used for this examination: automated exposure control, adjustment of the mA and/or kV accord ing to patient size, use of iterative reconstruction technique. COMPARISON: CT HEAD WITHOUT CONTRAST on DOS: 07/21/24 FINDINGS: Generalized cerebral volume loss is again noted. No acute intracranial hemorrhage or evidence of large vessel territorial infarction identified at thi s time. No midline shift. The basilar cisterns are patent. The visualized paranasal sinuses and left mastoid air cells are clear. Partial opacification of the right mastoid air cells again noted. No grossly displaced calvarial fracture is identified. IMPRESSION: No acute intracranial findings. Other relatively chronic appearing changes as above.
[2024-07-30 23:02] LABS: Alanine Aminotransferase 26 U/L (7-40); Anion Gap 13 (5-15); Aspartate Aminotransferase 35 U/L (13-40); Bilirubin, Total 0.8 mg/dL (0.2-1.0); Blood Alcohol 6.4 mg/dL (<10); Carbon Dioxide 22 mmol/L (20-31); Chloride 99 mmol/L (98-107); Magnesium 1.7 mg/dL (1.6-2.6); Potassium 3.8 mmol/L (3.5-5.1)
[2024-07-30 23:07] LABS: Albumin 4.8 g/dL (3.2-4.8); Alkaline Phosphatase 183 U/L (46-116); BUN/Creatinine Ratio 5.6 (10.0-20.0); Blood Urea Nitrogen < 5 mg/dL (9-23); Calcium 10.5 mg/dL (8.7-10.4); Glucose 115 mg/dL (74-106); Sodium 134 mmol/L (136-145); Total Protein 8.4 g/dL (5.7-8.2)
[2024-07-30] MEDS: LORazepam 2MG/ML-1ML VIAL IV ONE (23:15)
[2024-07-30] MEDS: LORazepam 2MG/ML-1ML VIAL IM ONE (23:20)
[2024-07-30 23:21] LABS: Lactic Acid w/Reflex 5.8 mmol/L (0.4-2.0)
[2024-07-30] MEDS: SODIUM CHLORIDE 0.9% 1,000 ML IVB ONE (23:40)
[2024-07-30 23:55] LABS: Large Platelets FEW; Platelet Estimate Decreased
[2024-07-31] MEDS: ACETAMINOPHEN IV 1000 MG/100ML (10MG/ML) IV ONE (00:42)
[2024-07-31] MEDS: SODIUM CHLORIDE 0.9% 2,000 ML IV ONE (00:44)
[2024-07-31] MEDS: AZITHROMYCIN 500MG/ 250ML 250 ML IV ONE (01:10)
[2024-07-31 01:51] LABS: Base Excess -3.1 mmol/L (-2.0-3.0)
[2024-07-31] MEDS: SODIUM CHLORIDE 0.9% 1,000 ML IV ONE (01:51)
[2024-07-31] MEDS: KETOROLAC TROMETH 30 MG/ML 1ML VIAL IV ONE (01:59)
[2024-07-31] MEDS ORDERED: LORazepam 2MG/ML-1ML VIAL IV PRN ×2 (02:30→07:45)
[2024-07-31] MEDS ORDERED: ONDANSETRON HCL 4 MG/2 ML VIAL IV PRN (02:30)
[2024-07-31] MEDS ORDERED: ACETAMINOPHEN 325 MG TAB PO PRN (02:30)
--- NOTE | 2024-07-31 03:02 | DVHHP2 ---
History of Present Illness Reason for Visit: Altered mental status History of Present Illness 39-year-old male presents for evaluation of altered mental status. Patient is currently lethargic oriented x2. Per ED records and personnel family members noted the patient altered in his room. They believe he had a seizure. Patient has a history of alcohol abuse and has ingested alcohol for the past two days. No further history could be obtained at the moment. Past Medical History Seizure Past Surgical History Denies Family History Noncontributory Smoke: No ALCOHOL: heavy Drugs: None Lives: with Family Review of Systems Review of Systems Review of systems are currently negative otherwise addressed in HPI. Allergies: Coded Allergies: NO KNOWN ALLERGIES (Unverified , 02/09/22) Medications Current Medications Medications Dose Ordered Sig/Igor Route Start Time Stop Time Status Last Admin Dose Admin Lorazepam 1 mg Q5MINP PRN IV 07/31/24 02:30 Levetiracetam 500 mg BID PO 07/31/24 10:00 Chlordiazepoxide HCl 25 mg Q6HPRN PRN PO 07/31/24 02:30 Ceftriaxone Sodium 50 ml @ 100 mls/hr DAILY@09 IV 07/31/24 09:00 Ondansetron HCl 4 mg Q4HP PRN IV 07/31/24 02:30 Acetaminophen 650 mg Q6HP PRN PO 07/31/24 02:30 Exam Vital Signs Vital Signs Date Time Temp Pulse Resp B/P (MAP) Pulse Ox O2 Delivery O2 Flow Rate FiO2 07/31/24 01:16 97 18 138/90 (106) 97 07/31/24 00:00 100.4 100.4 07/30/24 22:20 Room Air* 0 21 Exam Gen: 39-year-old male in mild distress. Skin: Warm, dry, normal color and texture, no rash. HEENT: Normocephalic atraumatic, mucous membranes moist and pink. Neck: Cervical and supraclavicular nodes normal without enlargement, trachea is midline, thyroid gland is normal without masses. Pulmonary: Clear to auscultation and percussion bilaterally. Cardiac: Regular rate and rhythm. No murmur Abdomen: Soft, nontender, nondistended, bowel sounds present all 4 quadrants, no guarding, no rigidity, no organomegaly. Extremities: No cyanosis, clubbing, no edema Neuro: Cranial nerves II through XII grossly intact, normal affect and speech, no focal motor deficits. Labs/Xrays ORDERING PHYSICIAN: ROSE PERDUE MD PROCEDURE(s): HWOCT - HEAD WITHOUT CONTRAST REASON: aloc ORDER NUMBER(s): [id number], ACCESSION NUMBER(s): [id number] CT BRAIN WITHOUT CONTRAST HISTORY: aloc TECHNIQUE: Axial scans were obtained from the skull base through the vertex without contrast. Sagittal and coronal reformats were generated. One or more of the following radiation dose reduction techniques were used for this examination: automated exposure control, adjustment of the mA and/or kV according to patient size, use of iterative reconstruction technique. COMPARISON: CT HEAD WITHOUT CONTRAST on DOS: 07/21/24 FINDINGS: Generalized cerebral volume loss is again noted. No acute intracranial hemorrhage or evidence of large vessel territorial infarction identified at this time. No midline shift. The basilar cisterns are patent. The visualized paranasal sinuses and left mastoid air cells are clear. Partial opacification of the right mastoid air cells again noted. No grossly displaced calvarial fracture is identified. IMPRESSION: No acute intracranial findings. Other relatively chronic appearing changes as above. Labs Test 07/31/24 01:47 07/31/24 00:15 07/30/24 22:24 Range/Units Blood Gas Specimen Type Arterial Blood Gas Sample Site Right radial Blood Gas Patient Temperature 37.0 Arterial Blood Date Drawn [id number] Arterial Blood pH 7.427 7.350-7.450 Arterial Blood Partial Pressure CO2 31.5 L 35.0-48.0 mmHg Arterial Blood Partial Pressure O2 134.7 H 83.0-108.0 mmHg Arterial Blood HCO3 20.3 L 21.0-28.0 mmol/L Arterial Blood Oxygen Saturation 98.7 H 94.0-98.0 % Arterial Blood Base Excess -3.1 L -2.0-3.0 mmol/L Arterial Blood Oxyhemoglobin 97.9 94.0-98.0 % Arterial Blood Carboxyhemoglobin 0.2 L 0.5-1.5 % Arterial Blood Methemoglobin 0.6 0.0-1.5 % Ortega Test Yes Blood Gas Total Hemoglobin 12.50 L 13.5-17.5 g/dL Blood Gas Modality Room air FiO2 % 21.0 Lactic Acid Level 5.3 *H 0.4-2.0 mmol/L White Blood Count 10.4 4.4-10.8 10^3/uL Red Blood Count 3.96 L 4.5-5.90 10^6/uL Hemoglobin 13.0 L 13.5-17.5 g/dL Hematocrit 38.6 L 41.0-53.0 % Mean Corpuscular Volume 97.7 80.0-100.0 fL Mean Corpuscular Hemoglobin 32.8 H 28.0-32.0 pg Mean Corpuscular Hemoglobin Concent 33.6 32.0-36.0 g/dL Red Cell Distribution Width 13.9 11.8-14.3 % Platelet Count 124 L 140-450 10^3/uL Mean Platelet Volume 8.4 6.9-10.8 fL Neutrophils (%) (Auto) 92.8 H 37.0-80.0 % Lymphocytes (%) (Auto) 3.0 L 10.0-50.0 % Monocytes (%) (Auto) 3.0 0.0-12.0 % Eosinophils (%) (Auto) 0.0 0.0-7.0 % Basophils (%) (Auto) 1.2 0.0-2.0 % Neutrophils # (Auto) 9.7 H 1.6-8.6 10 ^3/uL Lymphocytes # (Auto) 0.3 L 0.4-5.4 10 ^3/uL Monocytes # (Auto) 0.3 0-1.3 10 ^3/uL Eosinophils # (Auto) 0 0-0.8 10 ^3/uL Basophils # (Auto) 0.1 0-0.2 10 ^3/uL Nucleated Red Blood Cells 0.0 % Platelet Estimate Decreased Large Platelets Few Sodium Level 134 L 136-145 mmol/L Potassium Level 3.8 3.5-5.1 mmol/L Chloride Level 99 98-107 mmol/L Carbon Dioxide Level 22 20-31 mmol/L Anion Gap 13 5-15 Blood Urea Nitrogen < 5 L 9-23 mg/dL Creatinine 0.89 0.700-1.30 mg/dL Glomerular Filtration Rate Calc 113 >90 mL/min BUN/Creatinine Ratio 5.6 L 10.0-20.0 Serum Glucose 115 H 74-106 mg/dL Calcium Level 10.5 H 8.7-10.4 mg/dL Magnesium Level 1.7 1.6-2.6 mg/dL Total Bilirubin 0.8 0.2-1.0 mg/dL Aspartate Amino Transferase (AST) 35 13-40 U/L Alanine Aminotransferase (ALT) 26 7-40 U/L Alkaline Phosphatase 183 H 46-116 U/L Total Protein 8.4 H 5.7-8.2 g/dL Albumin 4.8 3.2-4.8 g/dL Plasma/Serum Blood Alcohol < 3.0 <10 mg/dL Assessment/Plan Assessment/Plan Assessment Acute encephalopathy Alcohol withdrawal History of seizures Plan Admit the patient to Med surge to the hospitalist Seizure precautions in place Resume home medications Continue treatment per orders. Plan discussed with: Patient My Orders Orders - SANTANA SANDHU Procedure Category Date Status Time Seizure Precautions ALISSA 07/31/[address] 02:23 Lorazepam 2mg/Ml Inj PHA 07/31/24 In Process (Ativan Inj) 02:30 Levetiracetam Tablet PHA 07/31/24 In Process (Keppra Tablet) 10:00 Chlordiazepoxide Hcl PHA 07/31/24 In Process Capsule (Librium Ca 02:30 Ceftriaxone 1gm/50ml PHA 07/31/24 In Process D5w (Rocephin) 09:00 Blood Culture PIPPA 07/31/24 Logged 02:23 Basic Metabolic Panel LAB 08/01/24 Verified 04:00 Admit ADMIT 07/31/24 Transmitted 02:23 Ondansetron Hcl PHA 07/31/24 In Process (Zofran) 02:30 Complete Blood Count LAB 08/01/24 Verified 04:00 Cardiac DIET 07/31/24 Transmitted Diet-2gna,Lofat,Lochol Breakfast Condition: Stable ALISSA 07/31/24 In Process 02:23 Acetaminophen Tablet PHA 07/31/24 In Process (Tylenol Tablet) 02:30 Bedrest With Bathroom ALISSA 07/31/24 In Process Privileg 02:23 Date of Service: Jul 31, 2024 Billing Provider: SANTANA SANDHU Common Visit Codes: [id number] INP/OBS CARE (HIGH) SANTANA SANDHU Jul 31, 2024 03:02
[2024-07-31 03:05] VITALS: PULSE 91; RESP 11; O2SAT 97
[2024-07-31 03:56] LABS: Amphetamine Screen, Urine Neg (NEGATIVE); Barbiturate Scree,Urine Neg (NEGATIVE); Benzodiazephine Screen, Urine Neg (NEGATIVE); Cannabinoid Screen, Urine Neg (NEGATIVE); Cocaine Screen, Urine Neg (NEGATIVE); Opiate Scree,Urine Neg (NEGATIVE); Phencyclidine Screen, Urine Neg (NEGATIVE)
[2024-07-31] MEDS: chlordiazePOXIDE HCL 25 MG CAP PO PRN (06:47)
[2024-07-31] MEDS: cefTRIAXone 1GM/50ML D5W 50 ML IV SCH (08:42)
[2024-07-31] MEDS: THIAMINE 100mg/ml INJ (200mg/2ml VIAL) IV ONE (08:42)
[2024-07-31] MEDS: FOLIC ACID 1 MG in D5W 5% 50 ML INJ ONE (09:15)
[2024-07-31] MEDS: levETIRAcetam 500 MG TAB PO SCH (10:06)
[2024-07-31 11:35] LABS: Urine Bacteria FEW /hpf (None Seen); Urine Blood Negative /uL (Negative); Urine Clarity Clear (Clear); Urine Color Colorless (Yellow); Urine Protein, UAD Negative (Negative); Urine Specific Gravity 1.006 (1.001-1.035); Urine Sperm PRESENT /hpf (None Seen); Urine Squamous Epithelial Cell None Seen /hpf (<5); Urine Urobilinogen Normal (Negative); Urine WBC <1 /hpf (0 - 3); Urine pH 5.5 (5.0-9.0)
[2024-07-31] MEDS: MAGNESIUM SULFATE 1GM/100ML 100 ML IV ONE (12:10)
[2024-07-31] MEDS: POTASSIUM EFFERVESENT TAB 25 MEQ PO ONE (12:10)
--- NOTE | 2024-07-31 15:12 | DVHPNRES ---
Progress Note Date Seen: Jul 31, 2024 Resident Creating Document: CHETNA KIRKPATRICK RESIDENT Medical Necessity Reason Pt with a Central, PICC or Fol: No Subjective Review of Systems Patient is 39 years old male with past medical history of seizure disorder alcoholic cirrhosis of liver, history of paroxysmal atrial fibrillation likely due to alcoholism presents to the ER with altered mental status. As per EEG record and also family members personnel patient was found altered in room. Family thought patient might have a seizure. As per family patient is alcoholic and has been yesterday alcohol for last couple of days. Patient reported being noncompliant with his Keppra medication for seizure. Initial lab workup revealed lactic acid 5.8, elevated CPK 363, WBC 10.4, hemoglobin 13, platelets 124, sodium 134, potassium 3.8, serum creatinine 0.89, lactic acidosis with lactic acid 5.8, calcium 10.5, magnesium 1.7, bilirubin 0.8, AST 35, ALT 26, alkaline phosphatase 183, albumin 4.8, UDS negative, alcohol< 6, analysis negative for UTI, UDS negative., CT head no acute intracranial hemorrhage or infarction. Past Medical History-Seizure, alcoholic cirrhosis, history of paroxysmal atrial fibrillation likely due to alcoholism Past Surgical History-Denies Social history-patient's alcoholic, denies smoking or drug abuse, lives at home Allergy- NKDA Personal History/ Social History- Patient was seen today at the bedside. Cardiovascular- deny acute chest pain or shortness of breath or cough or palpitation Respiratory- denies cough or short of breath or wheezing Gastrointestinal- denies any rectal bleeding, nausea or vomiting Musculoskeletal-denies acute joint swelling or tenderness or redness Neurological- denies acute dysarthria, dysphagia, change in vision Psychiatry- denies depression or SI or HI Skin- denies acute rash or purpura Patient was seen today for clinical evaluation. Labs and chart reviewed. Patient still with some confusion, patient is a poor historian. As per patient patient was noncompliant with his medication Keppra. Lactic acidosis resolved, elevated CPK. Patient had 1 seizure episode last night around 11:30 p.m. spoke to patient's sister SMITA PHELPS, , discussed patient's current medical condition, answered her questions and discussed the plan of care. Objective vital signs Vital Sign Date Time Temp Pulse Resp B/P (MAP) Pulse Ox O2 Delivery O2 Flow Rate FiO2 1/8/25 13:00 73 14 129/61 (83) 97 07/31/24 08:10 97.1 97.1 07/31/24 08:10 Room Air* 0 21 Total Intake and Output 07/30/24 07/30/24 07/31/24 15:00 23:00 07:00 Intake Total 3975 ml Balance 3975 ml medications Current Medications Medications Dose Ordered Sig/Igor Route Start Time Stop Time Status Last Admin Dose Admin Lorazepam 1 mg Q5MINP PRN IV 07/31/24 02:30 Levetiracetam 500 mg BID PO 07/31/24 10:00 07/31/24 10:06 500 MG Chlordiazepoxide HCl 25 mg Q6HPRN PRN PO 07/31/24 02:30 07/31/24 06:47 25 MG Ceftriaxone Sodium 50 ml @ 100 mls/hr DAILY@09 IV 07/31/24 09:00 07/31/24 08:42 100 MLS/HR Ondansetron HCl 4 mg Q4HP PRN IV 07/31/24 02:30 Acetaminophen 650 mg Q6HP PRN PO 07/31/24 02:30 Folic Acid 1 mg/ Magnesium Sulfate 8 meq/ Multivitamins 10 ml/Thiamine HCl 100 mg/Sodium Chloride 1,013.2 ml @ 126.247 mls/hr DAILY@1800 INJ 07/31/24 18:00 Folic Acid 1 mg/ Dextrose 50.2 ml @ 200.8 mls/ hr DAILY INJ 08/01/24 10:00 Thiamine HCl 100 mg DAILY IV 08/01/24 10:00 Lorazepam 1 mg Q2HPRN PRN IV 07/31/24 07:45 Examination General examination- patient with some confusion HEENT- PEERLA, no acute nasal discharge Cardiovascular- S1-S2 audible, rate and rhythm regular, no murmur Respiratory- CTAB, no wheeze or rhonchi Gastrointestinal-nontender, bowel sound+. Nondistended Musculoskeletal-no acute joint swelling or tenderness or redness# Lower extremity- no leg edema Neurological- cranial nerves intact, no acute dysarthria or dysphagia Psychiatry- denies depression or SI or HI Skin- no acute rash or purpura laboratory and microbiology Laboratory Tests 07/30/24 22:24 Test 07/30/24 22:24 Range/Units Serum Glucose 115 H 74-106 mg/dL Problem List/Assessment/Plan Problem List/Assessment/Plan Metabolic /toxic encephalopathy Suspected acute seizure episode Suspected alcohol intoxication Lactic acidosis Acute rhabdomyolysis Mild thrombocytopenia alcoholic cirrhosis, history of paroxysmal atrial fibrillation likely due to alcoholism Continue banana bag as prescribed Continue CIMS protocol Continue levetiracetam 500 mg p.o. b.i.d. Continue Ativan p.r.n. as prescribed Continue with thiamine and other supplement as prescribed Seizure precaution Goals of care/advance care planning; FULL CODE; discussed with the patient >15 minutes PUD prophylaxis: Pantoprazole DVT prophylaxis: Plan discussed with Dr. Kong, nursing staff, patient Total time spent on patient evaluation, chart review, assessment and plan, discussion discussion >30 minutes Plan discussed with: Patient Plan discussed with: Patient, Other (RN, sister) My Orders My Orders Orders - CHETNA KIRKPATRICK Procedure Category Date Status Time Folic Acid... PHA 07/31/24 In Process 18:00 Lorazepam 2mg/Ml Inj PHA 07/31/24 In Process (Ativan Inj) 07:45 Etoh Withdrawal ALISSA 07/31/24 In Process Assessment 07:44 Etoh Withdrawal ALISSA 07/31/24 In Process Assessment 07:44 Folic Acid PHA 08/01/24 In Process 10:00 Thiamine Inj PHA 08/01/24 In Process 10:00 Regular Diet DIET 07/31/24 Transmitted Lunch Communication Order ORDERS 07/31/24 Transmitted 11:24 Date of Service: Jul 31, 2024 Billing Provider: CHRIS KONG MD Common Visit Codes: [id number] INP/OBS CARE(HIGH) Secondary Visit Codes: [id number] CARE PLAN 30 MINUTES CHETNA KIRKPATRICK Jul 31, 2024 15:12 CHRIS KONG MD Jul 31, 2024 20:23
[2024-07-31 15:44] LABS: Basophils # (auto) 0.1 10 ^3/uL (0-0.2); Basophils % (auto) 0.9 % (0.0-2.0); Eosinophils # (auto) 0 10 ^3/uL (0-0.8); Eosinophils % (auto) 0.2 % (0.0-7.0); Hematocrit 38.9 % (41.0-53.0); Hemoglobin 13.2 g/dL (13.5-17.5); Lymphocytes # (auto) 1.1 10 ^3/uL (0.4-5.4); Lymphocytes % (auto) 18.6 % (10.0-50.0); Mean Corpuscular Hemoglobin 32.5 pg (28.0-32.0); Mean Corpuscular Volume 95.7 fL (80.0-100.0); Monocytes # (auto) 0.6 10 ^3/uL (0-1.3); Monocytes % (auto) 9.4 % (0.0-12.0); Neutrophils # (auto) 4.2 10 ^3/uL (1.6-8.6); Neutrophils % (auto) 70.9 % (37.0-80.0); Nucleated Red Blood Cells % 0.1 %; Platelet Count (auto) 115 10^3/uL (140-450); Red Blood Cells 4.07 10^6/uL (4.5-5.90); Red Cell Distribution Width 14.3 % (11.8-14.3); White Blood Cell 5.9 10^3/uL (4.4-10.8)
[2024-07-31 15:57] LABS: Anion Gap 8 (5-15); Carbon Dioxide 26 mmol/L (20-31); Chloride 102 mmol/L (98-107)
[2024-07-31 15:58] LABS: Calcium 9.7 mg/dL (8.7-10.4)
[2024-07-31 16:03] LABS: Glucose 89 mg/dL (74-106)
[2024-07-31 16:04] LABS: BUN/Creatinine Ratio 6.3 (10.0-20.0); Blood Urea Nitrogen < 5 mg/dL (9-23); Potassium 3.3 mmol/L (3.5-5.1); Sodium 136 mmol/L (136-145)
[2024-07-31 16:07] LABS: Folate (Folic Acid) 18.93 ng/mL (>5.38)
[2024-07-31] MEDS: PANTOPRAZOLE 40 MG/10 ML VIAL INJ IV ONE (16:40)
[2024-07-31] MEDS: FOLIC ACID 1 MG, MAGNESIUM SULF SDV 50% 8 MEQ, MULTIPLE VITAMIN 10 ML, THIAMINE INJ 100... INJ SCH (18:57)
[2024-07-31 23:27] VITALS: BP 138/76; PULSE 73; RESP 18; TEMP 98.3; O2SAT 96
[2024-07-31] MEDS ORDERED: LEVE500T40 PO (23:43)
[2024-08-01 01:00] VITALS: BP 122/92; PULSE 67; RESP 18; TEMP 98.5; O2SAT 98
[2024-08-01 05:00] VITALS: BP 131/93; PULSE 69; RESP 18; TEMP 98.3; O2SAT 99
[2024-08-01] MEDS ORDERED: POTASSIUM CHL 20 Meq TABLET PO ONE (08:30)
[2024-08-01 09:00] VITALS: BP_SYST 110; BP_SYST 149; BP_DIAS 71; BP_DIAS 96; PULSE 76; PULSE 84; RESP 16; TEMP 97.1; TEMP 97.6; O2SAT 95; O2SAT 99
[2024-08-01] MEDS ORDERED: PANTOPRAZOLE 40 MG/10 ML VIAL INJ IV SCH (10:00)
[2024-08-01] MEDS ORDERED: THIAMINE 100mg/ml INJ (200mg/2ml VIAL) IV SCH (10:00)
[2024-08-01] MEDS ORDERED: FOLIC ACID 1 MG in D5W 5% 50 ML INJ SCH (10:00)
--- NOTE | 2024-08-01 12:30 | DVHDSRES ---
Discharge Summary Date of Admission Resident Creating Document: CHETNA KIRKPATRICK RESIDENT Jul 31, 2024 at 02:23 Date of Discharge: Aug 01, 2024 Admitting Diagnosis Metabolic encephalopathy Labs/Diagnostic Data: Laboratory Results Test 07/31/24 15:24 07/31/24 10:20 07/31/24 03:00 07/31/24 02:38 White Blood Count 5.9 10^3/uL (4.4-10.8) Red Blood Count 4.07 10^6/uL (4.5-5.90) Hemoglobin 13.2 g/dL (13.5-17.5) Hematocrit 38.9 % (41.0-53.0) Mean Corpuscular Volume 95.7 fL (80.0-100.0) Mean Corpuscular Hemoglobin 32.5 pg (28.0-32.0) Mean Corpuscular Hemoglobin Concent 34.0 g/dL (32.0-36.0) Red Cell Distribution Width 14.3 % (11.8-14.3) Platelet Count 115 10^3/uL (140-450) Mean Platelet Volume 8.7 fL (6.9-10.8) Neutrophils (%) (Auto) 70.9 % (37.0-80.0) Lymphocytes (%) (Auto) 18.6 % (10.0-50.0) Monocytes (%) (Auto) 9.4 % (0.0-12.0) Eosinophils (%) (Auto) 0.2 % (0.0-7.0) Basophils (%) (Auto) 0.9 % (0.0-2.0) Neutrophils # (Auto) 4.2 10 ^3/uL (1.6-8.6) Lymphocytes # (Auto) 1.1 10 ^3/uL (0.4-5.4) Monocytes # (Auto) 0.6 10 ^3/uL (0-1.3) Eosinophils # (Auto) 0 10 ^3/uL (0-0.8) Basophils # (Auto) 0.1 10 ^3/uL (0-0.2) Nucleated Red Blood Cells 0.1 % Sodium Level 136 mmol/L (136-145) Potassium Level 3.3 mmol/L (3.5-5.1) Chloride Level 102 mmol/L (98-107) Carbon Dioxide Level 26 mmol/L (20-31) Anion Gap 8 (5-15) Blood Urea Nitrogen < 5 mg/dL (9-23) Creatinine 0.79 mg/dL (0.700-1.30) Glomerular Filtration Rate Calc 117 mL/min (>90) BUN/Creatinine Ratio 6.3 (10.0-20.0) Serum Glucose 89 mg/dL (74-106) Hemoglobin A1c 5.4 % A1C (<5.7) Calcium Level 9.7 mg/dL (8.7-10.4) Magnesium Level 2.0 mg/dL (1.6-2.6) Vitamin B12 Level > 4000 pg/mL (211-911) Folic Acid 18.93 ng/mL (>5.38) Thyroid Stimulating Hormone (TSH) 1.71 uIU/mL (0.55-4.78) Lactic Acid Level 0.7 mmol/L (0.4-2.0) Creatine Kinase 363 U/L (46-171) Urine Color Colorless (Yellow) Urine Clarity Clear (Clear) Urine pH 5.5 (5.0-9.0) Urine Specific [place] 1.006 (1.001-1.035) Urine Protein Negative (Negative) Urine Ketones Negative (Negative) Urine Blood Negative /uL (Negative) Urine Nitrite Negative (Negative) Urine Bilirubin Negative (Negative) Urine Urobilinogen Normal mg/dL (Negative) Urine Leukocyte Esterase Negative /uL (Negative) Urine RBC 2 /hpf (0 - 3) Urine WBC <1 /hpf (0 - 3) Urine Squamous Epithelial Cells None seen /hpf (<5) Urine Bacteria Few /hpf (None Seen) Urine Sperm Present /hpf (None Seen) Urine Glucose Normal mg/dL (Normal) Urine Opiates Screen Neg (NEGATIVE) Urine Fentanyl Screen Neg (NEGATIVE) Urine Barbiturates Screen Neg (NEGATIVE) Urine Phencyclidine Screen Neg (NEGATIVE) Urine Amphetamines Screen Neg (NEGATIVE) Urine Benzodiazepines Screen Neg (NEGATIVE) Urine Cocaine Screen Neg (NEGATIVE) Urine Cannabinoids Screen Neg (NEGATIVE) Test 07/31/24 01:47 07/30/24 22:24 Blood Gas Specimen Type Arterial Blood Gas Sample Site Right radial Blood Gas Patient Temperature 37.0 Arterial Blood Date Drawn [id number] Arterial Blood pH 7.427 (7.350-7.450) Arterial Blood Partial Pressure CO2 31.5 mmHg (35.0-48.0) Arterial Blood Partial Pressure O2 134.7 mmHg (83.0-108.0) Arterial Blood HCO3 20.3 mmol/L (21.0-28.0) Arterial Blood Oxygen Saturation 98.7 % (94.0-98.0) Arterial Blood Base Excess -3.1 mmol/L (-2.0-3.0) Arterial Blood Oxyhemoglobin 97.9 % (94.0-98.0) Arterial Blood Carboxyhemoglobin 0.2 % (0.5-1.5) Arterial Blood Methemoglobin 0.6 % (0.0-1.5) Ortega Test Yes Blood Gas Total Hemoglobin 12.50 g/dL (13.5-17.5) Blood Gas Modality Room air FiO2 % 21.0 Platelet Estimate Decreased Large Platelets Few Total Bilirubin 0.8 mg/dL (0.2-1.0) Aspartate Amino Transferase (AST) 35 U/L (13-40) Alanine Aminotransferase (ALT) 26 U/L (7-40) Alkaline Phosphatase 183 U/L (46-116) Total Protein 8.4 g/dL (5.7-8.2) Albumin 4.8 g/dL (3.2-4.8) Plasma/Serum Blood Alcohol < 3.0 mg/dL (<10) Other Laboratory Tests 07/31/24 15:24 Brief Hx & Hospital Course: Patient is 39 years old male with past medical history of seizure disorder alcoholic cirrhosis of liver, history of paroxysmal atrial fibrillation likely due to alcoholism presents to the ER with altered mental status. As per EEG record and also family members personnel patient was found altered in room. Family thought patient might have a seizure. As per family patient is alcoholic and has been yesterday alcohol for last couple of days. Patient reported being noncompliant with his Keppra medication for seizure. Initial lab workup revealed lactic acid 5.8, elevated CPK 363, WBC 10.4, hemoglobin 13, platelets 124, sodium 134, potassium 3.8, serum creatinine 0.89, lactic acidosis with lactic acid 5.8, calcium 10.5, magnesium 1.7, bilirubin 0.8, AST 35, ALT 26, alkaline phosphatase 183, albumin 4.8, UDS negative, alcohol< 6, analysis negative for UTI, UDS negative., CT head no acute intracranial hemorrhage or infarction. During hospital course patient was treated conservatively. Patient had 1 episode of seizure post admission which was treated emergently. Following the no seizure activity. Patient is AAOX4. Patient was adamant about going home. Patient was discharged home with the advice of resuming home medication. Was advised to follow up with the primary care physician in 1 week and also to follow up with the neurologist in 1-2 weeks for further follow up and care. Patient verbalized understanding. Patient was hemodynamically stable on discharge. General examination- patient is awake, alert, oriented, conversant HEENT- PEERLA, no acute nasal discharge Cardiovascular- S1-S2 audible, rate and rhythm regular, no murmur Respiratory- CTAB, no wheeze or rhonchi Gastrointestinal-nontender, bowel sound+. Nondistended Musculoskeletal-no acute joint swelling or tenderness or redness# Lower extremity- no leg edema Neurological- cranial nerves intact, no acute dysarthria or dysphagia Psychiatry- denies depression or SI or HI Skin- no acute rash or purpura Operations or Procedures Ph: [phone] DIAGNOSTIC IMAGING Diagnostic Imaging Report : [id number] Signed PATIENT: KOFI SCHMIDTACCT: [id number] UNIT: [id number] : 1985 LOC: ER ROOM / BED: / AGE / SEX: 39 / M ADM STATUS: REG ER SERVICE 58 ORDERING PHYSICIAN: ROSE PERDUE MD PROCEDURE(s): HWOCT - HEAD WITHOUT CONTRAST REASON: aloc ORDER NUMBER(s): [id number], ACCESSION NUMBER(s): [id number] CT BRAIN WITHOUT CONTRAST HISTORY: aloc TECHNIQUE: Axial scans were obtained from the skull base through the vertex without contrast. Sagittal and coronal reformats were generated. One or more of the following radiation dose reduction techniques were used for this examination: automated exposure control, adjustment of the mA and/or kV according to patient size, use of iterative reconstruction technique. COMPARISON: CT HEAD WITHOUT CONTRAST on DOS: 07/21/24 FINDINGS: Generalized cerebral volume loss is again noted. No acute intracranial hemorrhage or evidence of large vessel territorial infarction identified at this time. No midline shift. The basilar cisterns are patent. The visualized paranasal sinuses and left mastoid air cells are clear. Partial opacification of the right mastoid air cells again noted. No grossly displaced calvarial fracture is identified. IMPRESSION: No acute intracranial findings. Other relatively chronic appearing changes as above. ATED BY: SEE LEE MD DICTATED DATE/TIME: 07/30/242247 SIGNED BY: SEE LEE MD SIGNED DATE/TIME: 07/30/242247 CC: Condition at Discharge: Stable Final Diagnosis/Problems List Metabolic /toxic encephalopathy Suspected acute seizure episode Suspected alcohol intoxication Lactic acidosis Acute rhabdomyolysis Mild thrombocytopenia alcoholic cirrhosis, history of paroxysmal atrial fibrillation likely due to alcoholism Discharge Disposition: Home SNF Discharge Will this Physician continue t: No Discharge Instruct/Medications Diet: Regular Activity: Light activity Follow Up/Referral: Please follow up with your primary care physician in 1 week Please follow up with your neurologist in 2-3 weeks Please be compliant with medications Medications: Resume home medications Discharge Statement: "Patient was advised to return to the ER or call 911 if any headaches, dizziness, shortness of breath, chest pain, abdominal pain, bleeding, fevers, or worsening of medical condition. Patient was counseled about treatment plan, medications, possible side effects, patientverbalized understanding. All questions were answered to the best of my ability. This discharge took greater then 30 minutes in planning, reviewing documentation, counseling the patient, and discussing with other team members." ASSESSMENT ASSESSMENT Assessment Metabolic /toxic encephalopathy Suspected acute seizure episode Suspected alcohol intoxication Lactic acidosis Acute rhabdomyolysis Mild thrombocytopenia alcoholic cirrhosis, history of paroxysmal atrial fibrillation likely due to alcoholism Date of Service: Aug 01, 2024 Billing Provider: CHRIS ANN MD Common Visit Codes: [id number]/[id number] DISCH DAY >30min CHETNA KIRKPATRICK RESIDENT Aug 01, 2024 12:30 CHRIS ANN MD Aug 01, 2024 18:36
== END 2024-08-01 09:45 | disposition home or self-care (01) | DRG 53 ==
LOC: ER 21:20 → EDBD 21:20 → OVERFLOW 07-31 02:23 → CENTRAL 07-31 20:54
PROVIDERS: ADMIT Internal Medicine Geriatric Medicine; ATTEND Anesthesiology
DX: G40.909 Epilepsy, unspecified, not intractable, without status epilepticus (principal); D69.6 Thrombocytopenia, unspecified; E87.20 Acidosis, unspecified; M62.82 Rhabdomyolysis; E86.0 Dehydration; I48.0 Paroxysmal atrial fibrillation; F10.129 Alcohol abuse with intoxication, unspecified; F10.139 Alcohol abuse with withdrawal, unspecified; K70.30 Alcoholic cirrhosis of liver without ascites; Y90.9 Presence of alcohol in blood, level not specified; Z79.2 Long term (current) use of antibiotics; Z79.899 Other long term (current) drug therapy; Z91.148 Patient's other noncompliance with medication regimen for other reason
CPT/HCPCS: 36415; 36600; 70450; 80048; 80053; 80307; 80320; 81001; 82542; 82550; 82607; 82746; 82805; 83036; 83605; 83735; 84443; 85025; 87040; 99291; G0378; J0131; J1885; J2470; J7060

== ENCOUNTER 2024-12-08 19:53 | Emergency (ER) | payer MEDICAID ==
[~2024-12-08] VITALS: Ht 162.6 cm; Wt 68.2 kg
[~2024-12-08 19:53] MED LIST changes: +LEVE500T40 PO
--- NOTE | 2024-12-08 20:23 | ED.PDOC ---
History of Present Illness HPI Comments pt was found sleeping on the ground. he was able to wake up to EMT and ambulate without problems. he is an aocoholic and admitted that he was drinking to EMT, but denies any symptoms. to me, he reports, "drinking is against his mosque," then laughed. pt denies any symptoms. Chief Complaint: ETOH Time Seen by MD: 20:08 Primary Care Provider: UNKNOWN Reviewed Notes: Nurses Notes, Risk Control Specialist Notes Allergies: Coded Allergies: NO KNOWN ALLERGIES (Unverified , 02/09/22) Home Meds Active Scripts Sulfamethoxazole W/Trimethopri (Bactrim Ds Tablet) 1 Tab Tb, 1 TAB PO BID for 10 Days, #20 TAB 0 Refills Prov:MADELINE RAMIREZ MANAGER CABLE 08/07/22 Cephalexin ( Keflex 500) 500 Mg Cap, 1 CAP PO QID for 10 Days, #40 CAP 0 Refills Prov:MADELINE RAMIREZ MANAGER CABLE 08/07/22 Reported Medications Levetiracetam (Keppra) 500 Mg Tab, 500 MG PO BIDPRN for 30 Days, MG 07/31/24 Information Source: Patient, Emergency Med Personnel, [facility] Medical Record, Past Medical Record, PMD Records Mode of Arrival: EMS Severity: Mild Duration: Since onset Context: chronic alcoholism Past Medical History PAST MEDICAL HISTORY: Seizures Surgical History: Denies all surgeries Family History Family History: No family hx of Cancer, No family hx of DM, No family hx of Heart echo, No family hx of HTN, No family hx ofKidney echo, No family hx of Liver echo, No family hx of Lung echo, No family hx of Stroke Social History Smoker: Non-Smoker Alcohol: Heavy Drugs: Denies Drug Use Lives In: Home Physical Exam General Appearance: No Apparent Distress HEENT: Other (Pupils and face symmetric. Moist mucous membranes. Was normal) Neck: Full Range of Motion, Normal Inspection Respiratory: Lungs Clear, No Accessory Muscle Use, No Respiratory Distress, Normal Breath Sounds Cardiovascular: No Edema, No JVD, Regular Rate/Rhythm Breast Exam: Deferred Gastrointestinal: Non Tender, Soft Genitalia: Deferred Pelvic: Deferred Rectal: Deferred Extremities: Normal inspection, Normal range of motion, Non-tender, No pedal edema Neurologic: Alert (Oriented x4), Normal Affect, Normal Mood, Other (Appears intoxicated. Ambulatory.) Cerebellar Function: NOT DONE Reflexes: NOT DONE Skin: Dry, Normal Color, Warm Lymphatic: NOT DONE Was a procedure done? Was a procedure done?: No Differential Dx Considerations may include: alcohol abuse, substance abuse X-Ray, Labs, Meds, VS Vital Signs Date Time Temp Pulse Resp B/P (MAP) Pulse Ox O2 Delivery O2 Flow Rate FiO2 12/08/24 20:58 87 16 100 Room Air* 0 21 12/08/24 20:57 98.1 87 16 131/54 (79) 100 98.1 12/08/24 20:11 98.1 87 16 131/54 (79) 100 98.1 X-Ray, Labs, Meds, VS Comment Patient re-evaluated at 2210. He was alert, oriented x4 and ambulatory without ataxia. Vitals were unremarkable. He stated he would like to go home. He appears stable for discharge. Time of 1ST Reevaluation: 20:21 Reevaluation 1ST: Unchanged Time of 2ND Reevaluation: 22:10 Reevaluation 2ND: Improved Patient Education/Counseling: Diagnosis, Treatment, Prognosis, Need For Follow Up Family Education/Counseling: No Family Present Additional Information pt is alert, jocular, in no distress, has no signs of injuries, smells of alco hol, denies any complaints. he is well known to this ER. i will have him observed throughout the night and if he remains stable, will be safe for discharge at day light. i will signb out to Dr Abbey Kent to continue to watch him in the ER tonight Departure 1 Departure Time of Disposition: 22:20 Impression: Primary Impression: Alcohol abuse Disposition: HOME / SELF CARE / HOMELESS Condition: Stable Additional Instructions: Follow-up with your primary doctor in 1-2 days. Discharged With: Self Critical Care Note Critical Care Time?: No Stability Stability form required: No Heart Score Heart Score: Heart Score Response (Comments) Value History N/A 0 EKG N/A 0 Age N/A 0 Risk Factors N/A 0 Troponin N/A 0 Total 0 YAIR CORDON MD December 08, 2024 20:23 WISAM PLASENCIA MD December 08, 2024 22:22
[2024-12-08 20:57] VITALS: BP 131/54; TEMP 98.1
[2024-12-08 20:58] VITALS: PULSE 87; RESP 16; O2SAT 100
== END 2024-12-08 22:25 | disposition home or self-care (01) ==
LOC: ER 19:53
DX: F10.10 Alcohol abuse, uncomplicated (principal); Z79.899 Other long term (current) drug therapy
CPT/HCPCS: 82947

== ENCOUNTER 2024-12-20 22:41 | Inpatient (IN) | payer MEDICAID ==
[~2024-12-20] VITALS: Ht 162.6 cm; Wt 70.6 kg
--- NOTE | 2024-12-20 23:10 | ED.PDOC ---
History of Present Illness HPI Comments 39 year old male came to ER vis EMS due to seizures. Patient seen multiple times here at this ER for alcohol intoxication and seizures. Patient known chronic daily alcohol drinker. Has a witnessed seizure episode by family earlier. Unsure when patient last drank alcohol. No oral trauma or urinary incontinence noted. Chief Complaint: Seizure Time Seen by MD: 23:09 Primary Care Provider: UNKNOWN Reviewed Notes: Nurses Notes Allergies: Coded Allergies: NO KNOWN ALLERGIES (Unverified , 02/09/22) Home Meds Active Scripts Sulfamethoxazole W/Trimethopri (Bactrim Ds Tablet) 1 Tab Tb, 1 TAB PO BID for 10 Days, #20 TAB 0 Refills Prov:MADELINE RAMIREZ TUBE WINDER HAND 08/07/22 Cephalexin ( Keflex 500) 500 Mg Cap, 1 CAP PO QID for 10 Days, #40 CAP 0 Refills Prov:MADELINE RAMIREZ TUBE WINDER HAND 08/07/22 Reported Medications Levetiracetam (Keppra) 500 Mg Tab, 500 MG PO BIDPRN for 30 Days, MG 07/31/24 Information Source: Patient Mode of Arrival: Ambulatory Severity: Moderate Timing: Minutes Duration: Since onset Past Medical History PAST MEDICAL HISTORY: Seizures Surgical History: Denies all surgeries Family History Family History: No family hx of Cancer, No family hx of DM, No family hx of Heart echo, No family hx of HTN, No family hx ofKidney echo, No family hx of Liver echo, No family hx of Lung echo, No family hx of Stroke Social History Smoker: Non-Smoker Alcohol: Heavy Drugs: Denies Drug Use Lives In: Home Unable to Obtain due to: Altered Mental Status, Other (Patient postictal at this time) Physical Exam General Appearance: No Apparent Distress, Normal HEENT: Normal ENT Inspection, Pharynx Normal, TMs Normal Neck: Full Range of Motion, Non-Tender, Normal, Normal Inspection Respiratory: Chest Non-Tender, Lungs Clear, No Accessory Muscle Use, No Respiratory Distress, Normal Breath Sounds Cardiovascular: No Edema, No JVD, No Murmur, No Gallop, Normal Peripheral Pulses, Regular Rate/Rhythm Breast Exam: Deferred Gastrointestinal: No Organomegaly, Non Tender, No Pulsatile Mass, Normal Bowel Sounds, Soft Genitalia: Deferred Pelvic: Deferred Rectal: Deferred Extremities: No calf tenderness, Normal capillary refill, Normal inspection, Normal range of motion, Non-tender, No pedal edema Musculoskeletal : Apperance: Normal Neurologic: Alert, 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 Was a procedure done?: No Differential Dx Considerations may include: Alcohol intoxication, alcohol withdrawals, seizure disorder, electrolyte imbalance X-Ray, Labs, Meds, VS Vital Signs Date Time Temp Pulse Resp B/P (MAP) Pulse Ox O2 Delivery O2 Flow Rate FiO2 12/21/24 03:35 97.9 57 28 125/79 (94) 100 97.9 12/21/24 01:13 99.7 82 16 148/92 (110) 100 99.7 12/21/24 01:13 113 20 99 Room Air* 0 21 12/21/24 01:02 88 20 141/91 (108) 100 12/21/24 00:10 101.4 97 20 146/93 (110) 92 101.4 12/20/24 23:40 113 23 99 Room Air* 0 21 12/20/24 23:20 101.9 110 17 133/92 (106) 93 101.9 12/20/24 22:41 99.0 118 24 144/90 (108) 100 99.0 Lab Test 12/21/24 03:00 12/21/24 01:45 12/20/24 23:53 Range/Units Urine Color Colorless Yellow Urine Clarity Clear Clear Urine pH 5.5 5.0-9.0 Urine Specific [place] 1.007 1.001-1.035 Urine Protein Negative Negative Urine Ketones Negative Negative Urine Blood Negative Negative /uL Urine Nitrite Negative Negative Urine Bilirubin Negative Negative Urine Urobilinogen Normal Negative mg/dL Urine Leukocyte Esterase Negative Negative /uL Urine RBC <1 0 - 3 /hpf Urine Microscopic WBC < 1 0-3 /HPF Urine Squamous Epithelial Cells None seen <5 /hpf Urine Bacteria None seen None Seen /hpf Urine Glucose Normal Normal mg/dL Lactic Acid Level 1.9 2.4 *H 0.4-2.0 mmol/L White Blood Count 10.8 4.4-10.8 10^3/uL Red Blood Count 4.17 L 4.5-5.90 10^6/uL Hemoglobin 13.1 L 13.5-17.5 g/dL Hematocrit 39.6 L 41.0-53.0 % Mean Corpuscular Volume 94.9 80.0-100.0 fL Mean Corpuscular Hemoglobin 31.4 28.0-32.0 pg Mean Corpuscular Hemoglobin Concent 33.0 32.0-36.0 g/dL Red Cell Distribution Width 15.3 H 11.8-14.3 % Platelet Count 128 L 140-450 10^3/uL Mean Platelet Volume 8.3 6.9-10.8 fL Neutrophils (%) (Auto) 91.6 H 37.0-80.0 % Lymphocytes (%) (Auto) 2.5 L 10.0-50.0 % Monocytes (%) (Auto) 5.2 0.0-12.0 % Eosinophils (%) (Auto) 0.1 0.0-7.0 % Basophils (%) (Auto) 0.6 0.0-2.0 % Neutrophils # (Auto) 9.9 H 1.6-8.6 10 ^3/uL Lymphocytes # (Auto) 0.3 L 0.4-5.4 10 ^3/uL Monocytes # (Auto) 0.6 0-1.3 10 ^3/uL Eosinophils # (Auto) 0 0-0.8 10 ^3/uL Basophils # (Auto) 0.1 0-0.2 10 ^3/uL Nucleated Red Blood Cells 0.0 % Prothrombin Time 10.1 9.3-11.8 sec Prothrombin Time INR 0.95 0.9-1.15 Activated Partial Thromboplast Time < 20.0 L 24.5-34.5 SEC Sodium Level 142 136-145 mmol/L Potassium Level 3.5 3.5-5.1 mmol/L Chloride Level 111 H 98-107 mmol/L Carbon Dioxide Level 22 20-31 mmol/L Anion Gap 9 5-15 Blood Urea Nitrogen < 5 L 9-23 mg/dL Creatinine 0.93 0.700-1.30 mg/dL Glomerular Filtration Rate Calc 108 >90 mL/min BUN/Creatinine Ratio 5.4 L 10.0-20.0 Serum Glucose 89 74-106 mg/dL Calcium Level 9.5 8.7-10.4 mg/dL Total Bilirubin 0.3 0.2-1.0 mg/dL Aspartate Amino Transferase (AST) 14 13-40 U/L Alanine Aminotransferase (ALT) 12 7-40 U/L Alkaline Phosphatase 160 H 46-116 U/L Total Protein 7.8 5.7-8.2 g/dL Albumin 4.7 3.2-4.8 g/dL Plasma/Serum Blood Alcohol < 3.0 <10 mg/dL Current Medications Medications (Trade) Dose Ordered Sig/Igor Route Start Time Stop Time Status Last Admin Lactated Ringer's 1,800 ml @ 1,800 mls/hr ONCE ONCE IV 12/20/24 23:45 12/21/24 00:44 DC 12/21/24 00:03 Vancomycin HCl 200 ml @ 200 mls/hr ONCE ONCE IV 12/20/24 23:45 12/21/24 00:44 DC 12/21/24 00:03 Acetaminophen (Ofirmev) 1,000 mg DAILY STAT IV 12/20/24 23:38 12/20/24 23:46 DC 12/21/24 00:02 Lorazepam (Ativan Inj) 1 mg ONCE ONCE IV 12/21/24 03:00 12/21/24 03:08 DC 12/21/24 03:00 Time of 1ST Reevaluation: 23:07 Reevaluation 1ST: Unchanged Patient Education/Counseling: Diagnosis, Treatment, Other (Patient post ictal) Family Education/Counseling: No Family Present Sepsis Sepsis Reasesment Focused Exam Orders: Laboratory Tests 12/20/24 23:53: Lactic Acid Level 2.4 12/21/24 01:45: Lactic Acid Level 1.9 Departure 1 Departure Time of Disposition: 04:47 (Patient presents with concern for alcohol withdrawal and metabolic encephalopathy. We will admit patient for further workup) Impression: Primary Impression: Metabolic encephalopathy Additional Impressions: Alcohol withdrawal delirium, acute, hyperactive Generalized weakness Disposition: ADMITTED INPATIENT Admit to: Tele Condition: Guarded Critical Care Note Critical Care Time?: Yes Critical care comment: Altered mental status Authorized and Performed by: Kiersten Reed MD Total critical care time: Approximately 42 minutes Due to a high probability of clinically significant, life threatening deterioration, the patient required my highest level of preparedness to intervene emergently and I personally spent this critical care time directly and personally managing the patient. This critical care time included obtaining a history; examining the patient; pulse oximetry; ordering and review of studies; arranging urgent treatment with development of a management plan; evaluation of patient's response to treatment; frequent reassessment; and, discussions with other providers. This critical care time was performed to assess and manage the high probability of imminent, life-threatening deterioration that could result in multi-organ failure. It was exclusive of separately billable procedures and treating other patients and teaching time. Please see my other sections and the rest of the note for further information on patient assessment and treatment. Stability Stability form required: No Heart Score Heart Score: Heart Score Response (Comments) Value History N/A 0 EKG N/A 0 Age N/A 0 Risk Factors N/A 0 Troponin N/A 0 Total 0 I personally scribed for KIERSTEN REED MD ([email or web address]) on 12/20/24 at 23:10. Electronically submitted by Manuel Adams ([email or web address]). KIERSTEN REED MD December 20, 2024 23:10
[2024-12-20 23:40] VITALS: PULSE 113; RESP 23; O2SAT 99
[2024-12-21] MEDS: ACETAMINOPHEN IV 1000 MG/100ML (10MG/ML) IV STA (00:02)
[2024-12-21] MEDS: LACTATED RINGER'S 1,800 ML IV ONE (00:03)
[2024-12-21] MEDS: VANCOMYCIN 1GM/200ML PM 200 ML IV ONE (00:03)
[2024-12-21 00:13] LABS: Basophils # (auto) 0.1 10 ^3/uL (0-0.2); Basophils % (auto) 0.6 % (0.0-2.0); Eosinophils # (auto) 0 10 ^3/uL (0-0.8); Eosinophils % (auto) 0.1 % (0.0-7.0); Hematocrit 39.6 % (41.0-53.0); Hemoglobin 13.1 g/dL (13.5-17.5); Lymphocytes # (auto) 0.3 10 ^3/uL (0.4-5.4); Lymphocytes % (auto) 2.5 % (10.0-50.0); Mean Corpuscular Hemoglobin 31.4 pg (28.0-32.0); Mean Corpuscular Volume 94.9 fL (80.0-100.0); Monocytes # (auto) 0.6 10 ^3/uL (0-1.3); Monocytes % (auto) 5.2 % (0.0-12.0); Neutrophils # (auto) 9.9 10 ^3/uL (1.6-8.6); Neutrophils % (auto) 91.6 % (37.0-80.0); Platelet Count (auto) 128 10^3/uL (140-450); Red Blood Cells 4.17 10^6/uL (4.5-5.90); Red Cell Distribution Width 15.3 % (11.8-14.3); White Blood Cell 10.8 10^3/uL (4.4-10.8)
[2024-12-21 00:28] LABS: Alanine Aminotransferase 12 U/L (7-40); Albumin 4.7 g/dL (3.2-4.8); Anion Gap 9 (5-15); Aspartate Aminotransferase 14 U/L (13-40); Bilirubin, Total 0.3 mg/dL (0.2-1.0); Calcium 9.5 mg/dL (8.7-10.4); Carbon Dioxide 22 mmol/L (20-31); Glucose 89 mg/dL (74-106); Potassium 3.5 mmol/L (3.5-5.1); Sodium 142 mmol/L (136-145); Total Protein 7.8 g/dL (5.7-8.2)
[2024-12-21 00:31] LABS: Alkaline Phosphatase 160 U/L (46-116); BUN/Creatinine Ratio 5.4 (10.0-20.0); Blood Alcohol < 3.0 mg/dL (<10); Blood Urea Nitrogen < 5 mg/dL (9-23); Chloride 111 mmol/L (98-107); INR 0.95 (0.9-1.15); Partial Thromboplastin Time < 20.0 SEC (24.5-34.5); Prothrombin Time 10.1 sec (9.3-11.8)
[2024-12-21 00:34] LABS: Lactic Acid w/Reflex 2.4 mmol/L (0.4-2.0)
[2024-12-21 01:13] VITALS: PULSE 113; RESP 20; O2SAT 99
[2024-12-21] MEDS: LORazepam 2MG/ML-1ML VIAL IV ONE (03:00)
[2024-12-21 03:06] LABS: Urine Bacteria None Seen /hpf (None Seen)
[2024-12-21 03:11] LABS: Urine Blood Negative /uL (Negative); Urine Clarity Clear (Clear); Urine Color Colorless (Yellow); Urine Protein, UAD Negative (Negative); Urine Specific Gravity 1.007 (1.001-1.035); Urine Squamous Epithelial Cell None Seen /hpf (<5); Urine Urobilinogen Normal (Negative); Urine WBC < 1 /HPF (0-3); Urine pH 5.5 (5.0-9.0)
--- NOTE | 2024-12-21 04:10 | DVH ---
CHEST RADIOGRAPH Indication: fever Technique: Single frontal view of the chest was obtained Comparison: XY CHEST PORTABLE on DOS: 12/17/22, CHEST PORTABLE on DOS: 02/09/22 IMPRESSION: Heart appears normal in size. The lungs appear clear without focal airspace opacity, effusion, or pn eumothorax. Fixation Hardware in the right humerus.
--- NOTE | 2024-12-21 04:17 | DVH ---
EXAM: CT HEAD WITHOUT CONTRAST INDICATION: ams TECHNIQUE: CT of the head without intravenous contrast. Radiation Dose Information: CT Dose: CTDI volume is 60.5 mGy. Dose-length product is 1192.1 mGy*cm The dose indicators for CT are the volume Computed Tomography (CT) Dose Index (CTDIvol) and the Dose Length Product (DLP), and are measured in units of mGy and mGy-cm, respectively. These indicators are not patient dose, but values generated from the CT scanner acquisition factors. The report includes radiation exposure data for exposures received during this examination. COMPARISON: CT HEAD WITHOUT CONTRAST on DOS: 07/30/24, CT HEAD WITHOUT CONTRAST on DOS: 07/21/24, CT HE AD WITHOUT CONTRAST on DOS: 02/15/23 FINDINGS: There is no evidence of acute intracranial hemorrhage, extra-axial collection, mass effect, midline s hift, herniation or hydrocephalus. The ventricles, sulci and cisterns are age appropriate. The cazares-white differentiation is intact. The visualized paranasal sinuses and mastoid air cells are clear. The surrounding soft tissues and osseous structures are unremarkable. IMPRESSION: 1. No acute intracranial abnormality.
--- NOTE | 2024-12-21 05:14 | DVHHP2 ---
History of Present Illness Reason for Visit: Metabolic encephalopathy History of Present Illness The patient is a 39-year-old male with past medical history of seizure and EtOH abuse who presented to [facility] ED for evaluation of alcohol intoxication. As reported, patient had a witnessed seizure episode by family, altered mental status, unsure when patient last drank alcohol. Patient was seen and evaluated in the ED, laboratory data shows WBC 10.8, hemoglobin 13.1, hematocrit 39.6, platelets 128, sodium 142, potassium 3.5, BUN 5, creatinine 0.93, glucose 89, lactic acid 2.4 trending down to 1.9, blood pressure 125/79, heart rate 82, temperature 97.9 F, O2 saturation 99% on room air. Patient was started on IV Keppra, please see medication orders section in the computer. On my assessment, patient denied chest pain, no headache, no dizziness, no diaphoresis, no shortness of breath, no nausea, no vomiting, no fever, no chills. Patient was admitted for further evaluation and medical management. Past Medical History Seizures, EtOH Past Surgical History Denies all surgeries Family History Reviewed, noncontributory to the management of this case. Past Social History The patient lives at home, drinks alcohol heavily, denies smoking or illicit drugs abuse. Review of Systems Constitutional: Yes: Weakness; No: Fever, Chills, Sweats, Malaise, Other Eyes: No: Pain, Vision change, Conjunctivae inflammation, Eyelid inflammation, Other, Redness ENT: No: Ear pain, Ear discharge, Nose pain, Nose discharge, Nose congestion, Mouth pain, Mouth swelling, Throat pain, Throat swelling, Other Respiratory: No: Cough, Dry, Shortness of breath, SOB with excertion, Wheezing, Hemoptysis, Pleuritic Pain, Sputum, Wheezing, Other Cardiovascular: No: Chest Pain, Palpitations, Orthopnea, Paroxysmal Noc. Dyspnea, Edema, Lt Headedness, Other Gastrointestinal: No: Nausea, Vomiting, Abdominal Pain, Diarrhea, Constipation, Melena, Hematochezia, Other Genitourinary: No Dysuria, No Frequency, No Incontinence, No Hematuria, No Retention, No Other Musculoskeletal: No: other, neck pain, shoulder pain, arm pain, back pain, hand pain, leg pain, foot pain Skin: No: Rash, Lesions, Jaundice, Bruising, Other Neurological: Seizures; No: Weakness, Numbness, Incoordination, Change in speech, Confusion, Other Allergies: Coded Allergies: NO KNOWN ALLERGIES (Unverified , 02/09/22) Medications Current Medications Medications Dose Ordered Sig/Igor Route Start Time Stop Time Status Last Admin Dose Admin Cefepime HCl 50 ml @ 12.5 mls/hr Q8HR IV 12/21/24 06:00 Exam Vital Signs Vital Signs Date Time Temp Pulse Resp B/P (MAP) Pulse Ox O2 Delivery O2 Flow Rate FiO2 12/21/24 03:35 97.9 57 28 125/79 (94) 100 97.9 12/21/24 01:13 Room Air* 0 21 General Appearance: Alert, Cooperative, No acute distress, Other (Oriented x2) HEENT: Atraumatic, PERRLA, EOMI, Mucous membr. moist/pink Respiratory: Clear to auscultation, Normal air movement Cardiovascular: Regular rate, Normal S1, Normal S2, No murmurs Abdominal: Normal bowel sounds, Soft, No tenderness, No hepatospenomegaly, No masses Extremities: No clubbing, No cyanosis, No edema, Normal pulses, No tenderness/swelling Skin: No rashes, No breakdown, No significant lesion Neuro: Normal speech, Normal tone, Sensation intact, Cranial nerves 3-12 NL, Reflexes 2+, Other (Generalized weakness) Psych/Mental Status: Mental status NL, Mood NL Labs/Xrays Labs Test 12/21/24 03:00 12/21/24 01:45 12/20/24 23:53 Range/Units Urine Color Colorless Yellow Urine Clarity Clear Clear Urine pH 5.5 5.0-9.0 Urine Specific [place] 1.007 1.001-1.035 Urine Protein Negative Negative Urine Ketones Negative Negative Urine Blood Negative Negative /uL Urine Nitrite Negative Negative Urine Bilirubin Negative Negative Urine Urobilinogen Normal Negative mg/dL Urine Leukocyte Esterase Negative Negative /uL Urine RBC <1 0 - 3 /hpf Urine Microscopic WBC < 1 0-3 /HPF Urine Squamous Epithelial Cells None seen <5 /hpf Urine Bacteria None seen None Seen /hpf Urine Glucose Normal Normal mg/dL Lactic Acid Level 1.9 0.4-2.0 mmol/L White Blood Count 10.8 4.4-10.8 10^3/uL Red Blood Count 4.17 L 4.5-5.90 10^6/uL Hemoglobin 13.1 L 13.5-17.5 g/dL Hematocrit 39.6 L 41.0-53.0 % Mean Corpuscular Volume 94.9 80.0-100.0 fL Mean Corpuscular Hemoglobin 31.4 28.0-32.0 pg Mean Corpuscular Hemoglobin Concent 33.0 32.0-36.0 g/dL Red Cell Distribution Width 15.3 H 11.8-14.3 % Platelet Count 128 L 140-450 10^3/uL Mean Platelet Volume 8.3 6.9-10.8 fL Neutrophils (%) (Auto) 91.6 H 37.0-80.0 % Lymphocytes (%) (Auto) 2.5 L 10.0-50.0 % Monocytes (%) (Auto) 5.2 0.0-12.0 % Eosinophils (%) (Auto) 0.1 0.0-7.0 % Basophils (%) (Auto) 0.6 0.0-2.0 % Neutrophils # (Auto) 9.9 H 1.6-8.6 10 ^3/uL Lymphocytes # (Auto) 0.3 L 0.4-5.4 10 ^3/uL Monocytes # (Auto) 0.6 0-1.3 10 ^3/uL Eosinophils # (Auto) 0 0-0.8 10 ^3/uL Basophils # (Auto) 0.1 0-0.2 10 ^3/uL Nucleated Red Blood Cells 0.0 % Prothrombin Time 10.1 9.3-11.8 sec Prothrombin Time INR 0.95 0.9-1.15 Activated Partial Thromboplast Time < 20.0 L 24.5-34.5 SEC Sodium Level 142 136-145 mmol/L Potassium Level 3.5 3.5-5.1 mmol/L Chloride Level 111 H 98-107 mmol/L Carbon Dioxide Level 22 20-31 mmol/L Anion Gap 9 5-15 Blood Urea Nitrogen < 5 L 9-23 mg/dL Creatinine 0.93 0.700-1.30 mg/dL Glomerular Filtration Rate Calc 108 >90 mL/min BUN/Creatinine Ratio 5.4 L 10.0-20.0 Serum Glucose 89 74-106 mg/dL Calcium Level 9.5 8.7-10.4 mg/dL Total Bilirubin 0.3 0.2-1.0 mg/dL Aspartate Amino Transferase (AST) 14 13-40 U/L Alanine Aminotransferase (ALT) 12 7-40 U/L Alkaline Phosphatase 160 H 46-116 U/L Total Protein 7.8 5.7-8.2 g/dL Albumin 4.7 3.2-4.8 g/dL Plasma/Serum Blood Alcohol < 3.0 <10 mg/dL PATIENT: KOFI SCHMIDTACCT: [id number] UNIT: [id number] : 1985 LOC: ER ROOM / BED: / AGE / SEX: 39 / M ADM STATUS: REG ER SERVICE 0255 ORDERING PHYSICIAN: KIERSTEN WELLS MD PROCEDURE(s): HWOCT - HEAD WITHOUT CONTRAST REASON: ams ORDER NUMBER(s): [id number], ACCESSION NUMBER(s): [id number] EXAM: CT HEAD WITHOUT CONTRAST INDICATION: ams TECHNIQUE: CT of the head without intravenous contrast. Radiation Dose Information: CT Dose: CTDI volume is 60.5 mGy. Dose-length product is 1192.1 mGy*cm The dose indicators for CT are the volume Computed Tomography (CT) Dose Index (CTDIvol) and the Dose Length Product (DLP), and are measured in units of mGy and mGy-cm, respectively. These indicators are not patient dose, but values generated from the CT scanner acquisition factors. The report includes radiation exposure data for exposures received during this examination. COMPARISON: CT HEAD WITHOUT CONTRAST on DOS: 07/30/24, CT HEAD WITHOUT CONTRAST on DOS: 07/21/24, CT HEAD WITHOUT CONTRAST on DOS: 02/15/23 FINDINGS: There is no evidence of acute intracranial hemorrhage, extra-axial collection, mass effect, midline shift, herniation or hydrocephalus. The ventricles, sulci and cisterns are age appropriate. The cazares-white differentiation is intact. The visualized paranasal sinuses and mastoid air cells are clear. The surrounding soft tissues and osseous structures are unremarkable. IMPRESSION: 1. No acute intracranial abnormality. ORDERING PHYSICIAN: KIERSTEN WELLS MD PROCEDURE(s): CXRP - CHEST PORTABLE REASON: fever ORDER NUMBER(s): [id number], ACCESSION NUMBER(s): [id number] CHEST RADIOGRAPH Indication: fever Technique: Single frontal view of the chest was obtained Comparison: XY CHEST PORTABLE on DOS: 12/17/22, CHEST PORTABLE on DOS: 02/09/22 IMPRESSION: Heart appears normal in size. The lungs appear clear without focal airspace opacity, effusion, or pneumothorax. Fixation Hardware in the right humerus. Assessment/Plan Assessment/Plan Metabolic encephalopathy Generalized weakness Seizure disorder Alcohol withdrawal Altered mental status Alcohol withdrawal delirium, acute, hyperactive Plan 1. Admit to telemetry unit 2. Breathing treatment 3. Pain control management 4. Management of fluids and electrolytes 5. Consultation for hospitalist 6. Diagnostic tests head CT 7. DVT prophylaxis on SCDs 8. Repeat labs CBC, CMP in a.m. 9. Continue with current medical management 10. Treatment plan discussed with patient and RN. Patient verbalized understanding. Plan discussed with: Patient, Other (RN) Problem List: (1) Metabolic encephalopathy (2) Generalized weakness (3) Seizure disorder (4) Alcohol withdrawal (5) Altered mental status (6) Alcohol withdrawal delirium, acute, hyperactive Date of Service: December 21, 2024 Billing Provider: TEDDY LEON DNP Common Visit Codes: [id number] INP/OBS CARE (HIGH) TEDDY LEON DNP December 21, 2024 05:14
[2024-12-21] MEDS ORDERED: NITROGLYCERIN 0.4 MG SL TAB SL PRN (05:15)
[2024-12-21] MEDS ORDERED: ACETAMINOPHEN 325 MG TAB PO PRN (05:15)
[2024-12-21] MEDS ORDERED: MORPHINE SULFATE INJ 2 MG/ml SYRG IV PRN (05:15)
[2024-12-21] MEDS: THIAMINE 100mg/ml INJ (200mg/2ml VIAL) IV ONE (05:15)
[2024-12-21] MEDS ORDERED: HYDROcodone-ACET 5/325MG TAB PO PRN (05:15)
[2024-12-21] MEDS ORDERED: DOCUSATE SOD 100 MG CAP PO PRN (05:15)
[2024-12-21] MEDS ORDERED: LORazepam 2MG/ML-1ML VIAL IV PRN (05:15)
[2024-12-21] MEDS ORDERED: ONDANSETRON HCL 4 MG/2 ML VIAL IV PRN (05:15)
[2024-12-21 05:44] LABS: Basophils # (auto) 0 10 ^3/uL (0-0.2); Basophils % (auto) 0.3 % (0.0-2.0); Eosinophils # (auto) 0 10 ^3/uL (0-0.8); Hematocrit 37.3 % (41.0-53.0); Hemoglobin 12.3 g/dL (13.5-17.5); Lymphocytes # (auto) 0.6 10 ^3/uL (0.4-5.4); Lymphocytes % (auto) 5.7 % (10.0-50.0); Mean Corpuscular Hemoglobin 31.1 pg (28.0-32.0); Mean Corpuscular Hgb Conc. 32.8 g/dL (32.0-36.0); Mean Corpuscular Volume 94.6 fL (80.0-100.0); Monocytes # (auto) 0.8 10 ^3/uL (0-1.3); Neutrophils # (auto) 9.8 10 ^3/uL (1.6-8.6); Platelet Count (auto) 129 10^3/uL (140-450); Red Blood Cells 3.95 10^6/uL (4.5-5.90); Red Cell Distribution Width 15.4 % (11.8-14.3); White Blood Cell 11.2 10^3/uL (4.4-10.8)
[2024-12-21] MEDS: CEFEPIME 1GM/ 50ML 50 ML IV SCH (06:00)
[2024-12-21 06:01] LABS: Alanine Aminotransferase 12 U/L (7-40); Albumin 4.2 g/dL (3.2-4.8); Anion Gap 7 (5-15); Aspartate Aminotransferase 13 U/L (13-40); Bilirubin, Total 0.7 mg/dL (0.2-1.0); Calcium 8.9 mg/dL (8.7-10.4); Carbon Dioxide 22 mmol/L (20-31); Glucose 97 mg/dL (74-106); Sodium 139 mmol/L (136-145); Total Protein 6.9 g/dL (5.7-8.2)
[2024-12-21 06:04] LABS: Chloride 110 mmol/L (98-107); Potassium 3.1 mmol/L (3.5-5.1)
[2024-12-21 06:05] LABS: Alkaline Phosphatase 128 U/L (46-116); BUN/Creatinine Ratio 6.8 (10.0-20.0); Blood Urea Nitrogen < 5 mg/dL (9-23)
[2024-12-21] MEDS: THIAMINE 100mg/ml INJ (200mg/2ml VIAL) IV SCH (10:31)
[2024-12-21] MEDS: FOLIC ACID 1 MG in D5W 5% 50 ML INJ SCH (10:53)
[2024-12-21] MEDS: LACTATED RINGER'S 1,000 ML IV SCH ×2 (11:09→16:27)
[2024-12-21 11:15] VITALS: BP 143/94; PULSE 79
--- NOTE | 2024-12-21 12:46 | DVHPN2 ---
Reviewed: Care Plan, H&P, Labs, Medications, Previous Orders, Radiology Changes from previous H/P or p: No Changes Eyes: No Pain, No Vision change, No Conjunctivae inflammation, No Eyelid inflammation, No Other, No Redness ENT: No Ear pain, No Ear discharge, No Nose pain, No Nose discharge, No Nose congestion, No Mouth pain, No Mouth swelling, No Throat pain, No Throat swelling, No Other Cardiovascular: No Chest Pain, No Palpitations, No Orthopnea, No Paroxysmal Noc. Dyspnea, No Edema, No Lt Headedness, No Other Respiratory: No Cough, No Dry, No Shortness of breath, No SOB with excertion, No Wheezing, No Hemoptysis, No Pleuritic Pain, No Sputum, No Other Gastrointestinal: No Nausea, No Vomiting, No Abdominal Pain, No Diarrhea, No Constipation, No Melena, No Hematochezia, No Other Genitourinary: No Dysuria, No Frequency, No Incontinence, No Hematuria, No Retention, No Other Musculoskeletal: No other, No neck pain, No shoulder pain, No arm pain, No back pain, No hand pain, No leg pain, No foot pain Skin: No Rash, No Lesions, No Jaundice, No Bruising, No Other Objective Vitals Vital Signs Date Time Temp Pulse Resp B/P (MAP) Pulse Ox O2 Delivery O2 Flow Rate FiO2 12/21/24 11:15 79 143/94 (110) 12/21/24 11:09 Room Air* 0 21 12/21/24 05:35 97.9 28 100 97.9 Intake/Output Intake and Output 12/21/24 07:00 Intake Total 2000 ml Output Total 800 ml Balance 1200 ml Intake IV Total 2000 ml Output Urine Total 800 ml Medications Current Medications Medications Dose Ordered Sig/Igor Route Start Time Stop Time Status Last Admin Dose Admin Cefepime HCl 50 ml @ 12.5 mls/hr Q8HR IV 12/21/24 06:00 Levetiracetam 100 ml @ 400 mls/hr BID IV 12/21/24 10:00 Lorazepam 1 mg Q2HP PRN IV 12/21/24 05:15 Thiamine HCl 100 mg DAILY IV 12/21/24 10:00 12/21/24 10:31 100 MG Folic Acid 1 mg/ Dextrose 50.2 ml @ 200.8 mls/ hr DAILY INJ 12/21/24 10:00 12/21/24 10:53 200.8 MLS/HR Acetaminophen/ Hydrocodone Bitart 1 tab Q4HP PRN PO 12/21/24 05:15 Ondansetron HCl 4 mg Q4HP PRN IV 12/21/24 05:15 Docusate Sodium 100 mg BIDPRN PRN PO 12/21/24 05:15 Acetaminophen 650 mg Q6HP PRN PO 12/21/24 05:15 Nitroglycerin 0.4 mg Q5MINP PRN SL 12/21/24 05:15 Morphine Sulfate 2 mg Q30M PRN IV 12/21/24 05:15 Lactated Ringer's 1,000 ml @ 75 mls/hr [id number] IV 12/21/24 06:00 12/21/24 11:09 75 MLS/HR Laboratory Results Laboratory Tests 12/21/24 05:28 Chemistry Test 12/20/24 23:53 12/21/24 05:28 Albumin 4.7 g/dL (3.2-4.8) 4.2 g/dL (3.2-4.8) Calcium Level 9.5 mg/dL (8.7-10.4) 8.9 mg/dL (8.7-10.4) Total Protein 7.8 g/dL (5.7-8.2) 6.9 g/dL (5.7-8.2) Coagulation Test 12/20/24 23:53 Prothrombin Time 10.1 sec (9.3-11.8) Prothrombin Time INR 0.95 (0.9-1.15) Activated Partial Thromboplast Time < 20.0 SEC (24.5-34.5) L LFT Test 12/20/24 23:53 12/21/24 05:28 Alanine Aminotransferase (ALT) 12 U/L (7-40) 12 U/L (7-40) Alkaline Phosphatase 160 U/L (46-116) H 128 U/L (46-116) H Aspartate Amino Transferase (AST) 14 U/L (13-40) 13 U/L (13-40) Total Bilirubin 0.3 mg/dL (0.2-1.0) 0.7 mg/dL (0.2-1.0) Urinalysis Test 12/21/24 03:00 Urine Color Colorless (Yellow) Urine Clarity Clear (Clear) Urine pH 5.5 (5.0-9.0) Urine Specific [place] 1.007 (1.001-1.035) Urine Protein Negative (Negative) Urine Ketones Negative (Negative) Urine Blood Negative /uL (Negative) Urine Nitrite Negative (Negative) Urine Bilirubin Negative (Negative) Urine Urobilinogen Normal mg/dL (Negative) Urine Leukocyte Esterase Negative /uL (Negative) Urine RBC <1 /hpf (0 - 3) Urine Microscopic WBC < 1 /HPF (0-3) Urine Squamous Epithelial Cells None seen /hpf (<5) Urine Bacteria None seen /hpf (None Seen) Urine Glucose Normal mg/dL (Normal) Labs and/or images reviewed: Labs reviewed by me, Image(s) reviewed by me Assessment/Plan Assessment/Plan Acute toxic encephalopathy Acute alcoholic withdrawal: Ativan p.r.n. Chronic current alcohol abuse: Counseling thiamine folic acid Possible aspiration pneumonia: Cefepime History of seizures on Keppra CT head negative Chest x-ray neg Plan discussed with: Patient Date of Service: December 21, 2024 Billing Provider: DAVY HUGGINS MD Common Visit Codes: [id number] INP/OBS CARE(HIGH) DAVY HUGGINS MD December 21, 2024 12:46
[2024-12-21] MEDS: levETIRAcetam 500 mg/100ml 100 ML IV SCH (12:55)
[2024-12-21 13:00] VITALS: BP 143/94; PULSE 71; RESP 16; TEMP 98; O2SAT 99
[2024-12-21] MEDS ORDERED: LACTATED RINGER'S 1,000 ML IV SCH (13:00)
[2024-12-21 16:43] VITALS: BP 111/71; PULSE 63; RESP 16; TEMP 98.1; O2SAT 99
[2024-12-21 20:00] VITALS: PULSE 75
[2024-12-21 21:00] VITALS: BP 116/86; PULSE 66; RESP 18; TEMP 97.9; O2SAT 94
[2024-12-22] VITALS (8 sets, daily range): BP systolic 139–162; BP diastolic 82–98; PULSE 44–71; RESP 16–18; TEMP 97.4–98.5; O2SAT 96–100
[2024-12-22 05:38] LABS: Basophils # (auto) 0 10 ^3/uL (0-0.2); Basophils % (auto) 0.7 % (0.0-2.0); Eosinophils # (auto) 0.1 10 ^3/uL (0-0.8); Eosinophils % (auto) 1.2 % (0.0-7.0); Hematocrit 36.5 % (41.0-53.0); Hemoglobin 12.2 g/dL (13.5-17.5); Lymphocytes # (auto) 1.1 10 ^3/uL (0.4-5.4); Lymphocytes % (auto) 21.3 % (10.0-50.0); Mean Corpuscular Hemoglobin 31.6 pg (28.0-32.0); Mean Corpuscular Hgb Conc. 33.4 g/dL (32.0-36.0); Mean Corpuscular Volume 94.5 fL (80.0-100.0); Monocytes # (auto) 0.5 10 ^3/uL (0-1.3); Monocytes % (auto) 9.9 % (0.0-12.0); Neutrophils # (auto) 3.5 10 ^3/uL (1.6-8.6); Neutrophils % (auto) 66.9 % (37.0-80.0); Nucleated Red Blood Cells % 0.1 %; Platelet Count (auto) 139 10^3/uL (140-450); Red Blood Cells 3.86 10^6/uL (4.5-5.90); Red Cell Distribution Width 15.1 % (11.8-14.3); White Blood Cell 5.3 10^3/uL (4.4-10.8)
[2024-12-22 05:54] LABS: Alanine Aminotransferase 11 U/L (7-40); Albumin 4.3 g/dL (3.2-4.8); Alkaline Phosphatase 114 U/L (46-116); Anion Gap 9 (5-15); Aspartate Aminotransferase 17 U/L (13-40); Calcium 9.8 mg/dL (8.7-10.4); Carbon Dioxide 25 mmol/L (20-31); Glucose 91 mg/dL (74-106); Sodium 141 mmol/L (136-145); Total Protein 7.2 g/dL (5.7-8.2)
[2024-12-22 05:55] LABS: BUN/Creatinine Ratio 7.2 (10.0-20.0); Bilirubin, Total 0.5 mg/dL (0.2-1.0); Blood Urea Nitrogen < 5 mg/dL (9-23); Chloride 107 mmol/L (98-107); Potassium 3.3 mmol/L (3.5-5.1)
[2024-12-22] MEDS: FOLIC ACID 1 MG in D5W 5% 50 ML INJ ONE (08:03)
--- NOTE | 2024-12-22 08:38 | DVHPN2 ---
Reviewed: Care Plan, H&P, Labs, Medications, Previous Orders, Radiology Changes from previous H/P or p: No Changes Eyes: No Pain, No Vision change, No Conjunctivae inflammation, No Eyelid inflammation, No Other, No Redness ENT: No Ear pain, No Ear discharge, No Nose pain, No Nose discharge, No Nose congestion, No Mouth pain, No Mouth swelling, No Throat pain, No Throat swelling, No Other Cardiovascular: No Chest Pain, No Palpitations, No Orthopnea, No Paroxysmal Noc. Dyspnea, No Edema, No Lt Headedness, No Other Respiratory: No Cough, No Dry, No Shortness of breath, No SOB with excertion, No Wheezing, No Hemoptysis, No Pleuritic Pain, No Sputum, No Other Gastrointestinal: No Nausea, No Vomiting, No Abdominal Pain, No Diarrhea, No Constipation, No Melena, No Hematochezia, No Other Genitourinary: No Dysuria, No Frequency, No Incontinence, No Hematuria, No Retention, No Other Musculoskeletal: No other, No neck pain, No shoulder pain, No arm pain, No back pain, No hand pain, No leg pain, No foot pain Skin: No Rash, No Lesions, No Jaundice, No Bruising, No Other Objective Vitals Vital Signs Date Time Temp Pulse Resp B/P (MAP) Pulse Ox O2 Delivery O2 Flow Rate FiO2 12/22/24 08:00 Room Air* 0 21 12/22/24 05:00 97.8 55 18 162/92 (115) 98 97.8 Intake/Output Intake and Output 12/22/24 07:00 Intake Total 1100 ml Output Total 1300 ml Balance -200 ml Intake Oral 500 ml IV Total 600 ml Output Urine Total 1300 ml Medications Current Medications Medications Dose Ordered Sig/Igor Route Start Time Stop Time Status Last Admin Dose Admin Cefepime HCl 50 ml @ 12.5 mls/hr Q8HR IV 12/21/24 06:00 12/22/24 05:38 12.5 MLS/HR Levetiracetam 100 ml @ 400 mls/hr BID IV 12/21/24 10:00 12/21/24 22:35 400 MLS/HR Lorazepam 1 mg Q2HP PRN IV 12/21/24 05:15 Thiamine HCl 100 mg DAILY IV 12/21/24 10:00 12/21/24 10:31 100 MG Folic Acid 1 mg/ Dextrose 50.2 ml @ 200.8 mls/ hr DAILY INJ 12/21/24 10:00 12/21/24 10:53 200.8 MLS/HR Acetaminophen/ Hydrocodone Bitart 1 tab Q4HP PRN PO 12/21/24 05:15 Ondansetron HCl 4 mg Q4HP PRN IV 12/21/24 05:15 Docusate Sodium 100 mg BIDPRN PRN PO 12/21/24 05:15 Acetaminophen 650 mg Q6HP PRN PO 12/21/24 05:15 Nitroglycerin 0.4 mg Q5MINP PRN SL 12/21/24 05:15 Morphine Sulfate 2 mg Q30M PRN IV 12/21/24 05:15 Lactated Ringer's 1,000 ml @ 150 mls/hr Q6H40M IV 12/21/24 13:00 UNV Lactated Ringer's 1,000 ml @ 150 mls/hr Q6H40M IV 12/21/24 15:45 12/22/24 05:37 150 MLS/HR Laboratory Results Laboratory Tests 12/22/24 04:21 Chemistry Test 12/22/24 04:21 Albumin 4.3 g/dL (3.2-4.8) Calcium Level 9.8 mg/dL (8.7-10.4) Total Protein 7.2 g/dL (5.7-8.2) LFT Test 12/22/24 04:21 Alanine Aminotransferase (ALT) 11 U/L (7-40) Alkaline Phosphatase 114 U/L (46-116) Aspartate Amino Transferase (AST) 17 U/L (13-40) Total Bilirubin 0.5 mg/dL (0.2-1.0) Urinalysis Test 12/21/24 03:00 Urine Color Colorless (Yellow) Urine Clarity Clear (Clear) Urine pH 5.5 (5.0-9.0) Urine Specific [place] 1.007 (1.001-1.035) Urine Protein Negative (Negative) Urine Ketones Negative (Negative) Urine Blood Negative /uL (Negative) Urine Nitrite Negative (Negative) Urine Bilirubin Negative (Negative) Urine Urobilinogen Normal mg/dL (Negative) Urine Leukocyte Esterase Negative /uL (Negative) Urine RBC <1 /hpf (0 - 3) Urine Microscopic WBC < 1 /HPF (0-3) Urine Squamous Epithelial Cells None seen /hpf (<5) Urine Bacteria None seen /hpf (None Seen) Urine Glucose Normal mg/dL (Normal) Microbiology Microbiology Date/Time Source Procedure Growth Status 12/21/24 00:25 Blood Blood Culture - Preliminary NO GROWTH AFTER 24 HOURS OF INCUBATION. Resulted Labs and/or images reviewed: Labs reviewed by me, Image(s) reviewed by me Assessment/Plan Assessment/Plan Acute toxic encephalopathy Acute alcoholic withdrawal: Ativan p.r.n. Chronic current alcohol abuse: Counseling thiamine folic acid Possible aspiration pneumonia: Cefepime History of seizures on Keppra CT head negative Chest x-ray neg Complained of swelling and pain right little finger after fall playing soccer Plan discussed with: Patient My Orders Orders - DAVY HUGGINS MD Procedure Category Date Status Time Mrsa Screen PIPPA 12/21/24 In Process 14:22 Lactated Ringer's PHA 12/21/24 In Process 15:45 Date of Service: Dec 22, 2024 Billing Provider: DAVY HUGGINS MD Common Visit Codes: [id number] INP/OBS CARE(HIGH) DAVY HUGGINS MD Dec 22, 2024 08:38
--- NOTE | 2024-12-22 15:47 | DVH ---
CLINICAL INDICATION: Rule out fracture right little finger TECHNIQUE: 3 XY R HAND 3 VIEW XRAY Comparison: None FINDINGS/IMPRESSION: : Minimally displaced fracture of the base of the 5th proximal phalanx.
[2024-12-23] VITALS (9 sets, daily range): BP systolic 121–179; BP diastolic 67–112; PULSE 44–71; RESP 17–18; TEMP 97.3–99.1; O2SAT 97–100
--- NOTE | 2024-12-23 08:45 | DVHPN2 ---
Reviewed: Care Plan, H&P, Labs, Medications, Previous Orders, Radiology Changes from previous H/P or p: No Changes Eyes: No Pain, No Vision change, No Conjunctivae inflammation, No Eyelid inflammation, No Other, No Redness ENT: No Ear pain, No Ear discharge, No Nose pain, No Nose discharge, No Nose congestion, No Mouth pain, No Mouth swelling, No Throat pain, No Throat swelling, No Other Cardiovascular: No Chest Pain, No Palpitations, No Orthopnea, No Paroxysmal Noc. Dyspnea, No Edema, No Lt Headedness, No Other Respiratory: No Cough, No Dry, No Shortness of breath, No SOB with excertion, No Wheezing, No Hemoptysis, No Pleuritic Pain, No Sputum, No Other Gastrointestinal: No Nausea, No Vomiting, No Abdominal Pain, No Diarrhea, No Constipation, No Melena, No Hematochezia, No Other Genitourinary: No Dysuria, No Frequency, No Incontinence, No Hematuria, No Retention, No Other Musculoskeletal: No other, No neck pain, No shoulder pain, No arm pain, No back pain, No hand pain, No leg pain, No foot pain Skin: No Rash, No Lesions, No Jaundice, No Bruising, No Other Objective Vitals Vital Signs Date Time Temp Pulse Resp B/P (MAP) Pulse Ox O2 Delivery O2 Flow Rate FiO2 12/23/24 07:52 Room Air* 0 21 12/23/24 05:00 98.3 61 18 179/80 (113) 100 98.3 Intake/Output Intake and Output 12/23/24 07:00 Intake Total 1125.2 ml Output Total 4400 ml Balance -3274.8 ml Intake Oral 875 ml IV Total 250.2 ml Output Urine Total 4400 ml Medications Current Medications Medications Dose Ordered Sig/Igor Route Start Time Stop Time Status Last Admin Dose Admin Cefepime HCl 50 ml @ 12.5 mls/hr Q8HR IV 12/21/24 06:00 12/23/24 05:26 12.5 MLS/HR Levetiracetam 100 ml @ 400 mls/hr BID IV 12/21/24 10:00 12/22/24 21:02 400 MLS/HR Lorazepam 1 mg Q2HP PRN IV 12/21/24 05:15 Thiamine HCl 100 mg DAILY IV 12/21/24 10:00 12/22/24 09:02 100 MG Folic Acid 1 mg/ Dextrose 50.2 ml @ 200.8 mls/ hr DAILY INJ 12/21/24 10:00 12/22/24 09:07 200.8 MLS/HR Acetaminophen/ Hydrocodone Bitart 1 tab Q4HP PRN PO 12/21/24 05:15 Ondansetron HCl 4 mg Q4HP PRN IV 12/21/24 05:15 Docusate Sodium 100 mg BIDPRN PRN PO 12/21/24 05:15 Acetaminophen 650 mg Q6HP PRN PO 12/21/24 05:15 Nitroglycerin 0.4 mg Q5MINP PRN SL 12/21/24 05:15 Morphine Sulfate 2 mg Q30M PRN IV 12/21/24 05:15 Lactated Ringer's 1,000 ml @ 150 mls/hr Q6H40M IV 12/21/24 13:00 UNV Lactated Ringer's 1,000 ml @ 150 mls/hr Q6H40M IV 12/21/24 15:45 12/23/24 07:48 150 MLS/HR Laboratory Results Laboratory Tests 12/22/24 04:21 Urinalysis Test 12/21/24 03:00 Urine Color Colorless (Yellow) Urine Clarity Clear (Clear) Urine pH 5.5 (5.0-9.0) Urine Specific [place] 1.007 (1.001-1.035) Urine Protein Negative (Negative) Urine Ketones Negative (Negative) Urine Blood Negative /uL (Negative) Urine Nitrite Negative (Negative) Urine Bilirubin Negative (Negative) Urine Urobilinogen Normal mg/dL (Negative) Urine Leukocyte Esterase Negative /uL (Negative) Urine RBC <1 /hpf (0 - 3) Urine Microscopic WBC < 1 /HPF (0-3) Urine Squamous Epithelial Cells None seen /hpf (<5) Urine Bacteria None seen /hpf (None Seen) Urine Glucose Normal mg/dL (Normal) Microbiology Microbiology Date/Time Source Procedure Growth Status 12/21/24 14:00 Nose MRSA Screen - Final Complete 12/21/24 00:25 Blood Blood Culture - Preliminary NO GROWTH AFTER 48 HOURS OF INCUBATION. Resulted Labs and/or images reviewed: Labs reviewed by me, Image(s) reviewed by me Assessment/Plan Assessment/Plan Acute toxic encephalopathy Acute alcoholic withdrawal: Ativan p.r.n. Chronic current alcohol abuse: Counseling thiamine folic acid Possible aspiration pneumonia: Cefepime History of seizures on Keppra CT head negative Chest x-ray neg Minimally displaced fracture proximal phalanx right 5th finger: Consult for orthopedic Dr Seymour Plan discussed with: Patient My Orders Orders - DAVY HUGGINS MD Procedure Category Date Status Time * Orthopedic Consult CONS 12/23/24 Verified 08:42 Date of Service: Dec 23, 2024 Billing Provider: DAVY HUGGINS MD Common Visit Codes: [id number] INP/OBS CARE(HIGH) DAVY HUGGINS MD Dec 23, 2024 08:45
--- NOTE | 2024-12-23 19:49 | DVHINCON2 ---
Consult Note Consult Consult Note HISTORY OF PRESENT ILLNESS: Patient was admitted from the emergency department for Seizures and alcohol dependency. During inpatient evaluation, patient reported right-hand pain. Hospitalist team ordered an X-ray of the right hand, which revealed a non- displaced fracture of the base of the 5th proximal phalanx. Orthopedic consultation was requested for evaluation and management. On interview, the patient is unclear on the mechanism of injury and does not recall any trauma. States the pain has been present for few days. Denies receiving any prior treatment, brace, splint, or cast for the injury. Reports difficulty and pain with making a full fist. --- PAST MEDICAL HISTORY: Alcohol Use Disorder No known diabetes, smoking, or anticoagulation reported --- PHYSICAL EXAMINATION: General: Alert, cooperative, mildly disheveled Right Hand: Ecchymosis noted over the volar aspect of the 4th and 5th digits Tenderness at base of 5th proximal phalanx No gross deformity or open wounds Mild soft tissue swelling Neurovascular: Intact to light touch in all digits; capillary refill <2 sec Active range of motion: Patient able to achieve ~80% of a composite fist; no overlap of 5th digit over adjacent fingers --- IMAGING: Right Hand X-ray (completed by hospitalist): Non-displaced fracture of the base of the 5th proximal phalanx No dislocation, no intra-articular involvement noted No evidence of foreign body or soft tissue gas --- ASSESSMENT: Right hand, non-displaced base fracture of the 5th proximal phalanx, subacute in nature (~1 week old), without prior treatment. Patient has preserved alignment and functional range of motion with some restriction due to pain and swelling. --- PLAN: 1. Applied ulnar gutter splint in functional position (MCP flexion 7090, IP joints extended) 2. Pain control with acetaminophen/NSAIDs as needed, if not contraindicated 3. Avoid lifting, gripping, or impact activities with right hand until follow-up 4. Instructed to avoid activities that may result in falls or further injury 5. Recommend outpatient follow-up in orthopedic clinic in 12 weeks for repeat imaging and reassessment 6. Continue bowel regimen per inpatient team; all other care per hospitalist 7. Discussed diagnosis, treatment plan, and precautions with patient. All questions answered. Plan discussed with: Patient, Other (bedside nurse) Visit Coding Surgery Date of Service if different f: Dec 23, 2024 Billing Provider: RYDER ROMEO PAC Surgery Visit Codes: [id number] - INP CONSULT <55 MIN RYDER ROMEO PAC Dec 23, 2024 19:49
[2024-12-24 05:00] VITALS: BP 131/76; PULSE 66; RESP 18; TEMP 97.6; O2SAT 100
[2024-12-24 08:00] VITALS: PULSE 48
[2024-12-24] MEDS ORDERED: THIA100T13 PO (08:22)
[2024-12-24] MEDS ORDERED: FOLI-119 PO (08:22)
[2024-12-24] MEDS ORDERED: HYDR-4902 PO (08:22)
[2024-12-24] MEDS ORDERED: CHL25C PO (08:22)
--- NOTE | 2024-12-24 08:25 | DVHPN2 ---
Reviewed: Care Plan, H&P, Labs, Medications, Previous Orders, Radiology Changes from previous H/P or p: No Changes Eyes: No Pain, No Vision change, No Conjunctivae inflammation, No Eyelid inflammation, No Other, No Redness ENT: No Ear pain, No Ear discharge, No Nose pain, No Nose discharge, No Nose congestion, No Mouth pain, No Mouth swelling, No Throat pain, No Throat swelling, No Other Cardiovascular: No Chest Pain, No Palpitations, No Orthopnea, No Paroxysmal Noc. Dyspnea, No Edema, No Lt Headedness, No Other Respiratory: No Cough, No Dry, No Shortness of breath, No SOB with excertion, No Wheezing, No Hemoptysis, No Pleuritic Pain, No Sputum, No Other Gastrointestinal: No Nausea, No Vomiting, No Abdominal Pain, No Diarrhea, No Constipation, No Melena, No Hematochezia, No Other Genitourinary: No Dysuria, No Frequency, No Incontinence, No Hematuria, No Retention, No Other Musculoskeletal: No other, No neck pain, No shoulder pain, No arm pain, No back pain, No hand pain, No leg pain, No foot pain Skin: No Rash, No Lesions, No Jaundice, No Bruising, No Other Objective Vitals Vital Signs Date Time Temp Pulse Resp B/P (MAP) Pulse Ox O2 Delivery O2 Flow Rate FiO2 12/24/24 07:51 Room Air* 0 21 12/24/24 05:00 97.6 66 18 131/76 (94) 100 97.6 Intake/Output Intake and Output 12/24/24 07:00 Intake Total 2395.2 ml Output Total 1750 ml Balance 645.2 ml Intake Oral 1645 ml IV Total 750.2 ml Output Urine Total 1750 ml # Voids 3 Medications Current Medications Medications Dose Ordered Sig/Igor Route Start Time Stop Time Status Last Admin Dose Admin Cefepime HCl 50 ml @ 12.5 mls/hr Q8HR IV 12/21/24 06:00 12/24/24 06:04 12.5 MLS/HR Levetiracetam 100 ml @ 400 mls/hr BID IV 12/21/24 10:00 12/23/24 21:19 400 MLS/HR Lorazepam 1 mg Q2HP PRN IV 12/21/24 05:15 Thiamine HCl 100 mg DAILY IV 12/21/24 10:00 12/23/24 09:09 100 MG Folic Acid 1 mg/ Dextrose 50.2 ml @ 200.8 mls/ hr DAILY INJ 12/21/24 10:00 12/23/24 09:12 200.8 MLS/HR Acetaminophen/ Hydrocodone Bitart 1 tab Q4HP PRN PO 12/21/24 05:15 Ondansetron HCl 4 mg Q4HP PRN IV 12/21/24 05:15 Docusate Sodium 100 mg BIDPRN PRN PO 12/21/24 05:15 Acetaminophen 650 mg Q6HP PRN PO 12/21/24 05:15 Nitroglycerin 0.4 mg Q5MINP PRN SL 12/21/24 05:15 Morphine Sulfate 2 mg Q30M PRN IV 12/21/24 05:15 Lactated Ringer's 1,000 ml @ 150 mls/hr Q6H40M IV 12/21/24 13:00 UNV Laboratory Results Laboratory Tests 12/22/24 04:21 Urinalysis Test 12/21/24 03:00 Urine Color Colorless (Yellow) Urine Clarity Clear (Clear) Urine pH 5.5 (5.0-9.0) Urine Specific [place] 1.007 (1.001-1.035) Urine Protein Negative (Negative) Urine Ketones Negative (Negative) Urine Blood Negative /uL (Negative) Urine Nitrite Negative (Negative) Urine Bilirubin Negative (Negative) Urine Urobilinogen Normal mg/dL (Negative) Urine Leukocyte Esterase Negative /uL (Negative) Urine RBC <1 /hpf (0 - 3) Urine Microscopic WBC < 1 /HPF (0-3) Urine Squamous Epithelial Cells None seen /hpf (<5) Urine Bacteria None seen /hpf (None Seen) Urine Glucose Normal mg/dL (Normal) Microbiology Microbiology Date/Time Source Procedure Growth Status 12/21/24 14:00 Nose MRSA Screen - Final Complete 12/21/24 00:25 Blood Blood Culture - Preliminary NO GROWTH AFTER 72 HOURS OF INCUBATION. Resulted Labs and/or images reviewed: Labs reviewed by me, Image(s) reviewed by me Assessment/Plan Assessment/Plan Acute toxic encephalopathy Acute alcoholic withdrawal: Ativan p.r.n. Chronic current alcohol abuse: Counseling thiamine folic acid Possible aspiration pneumonia: Cefepime History of seizures on Keppra CT head negative Chest x-ray neg Minimally displaced fracture proximal phalanx right 5th finger: Ulnar gutter splint applied by ortho and advised outpatient follow up in two weeks Plan discussed with: Patient My Orders Orders - DAVY HUGGINS MD Procedure Category Date Status Time * Orthopedic Consult CONS 12/23/24 Transmitted 08:42 Date of Service: Dec 24, 2024 Billing Provider: DAVY HUGGINS MD Common Visit Codes: [id number] INP/OBS CARE(HIGH) DAVY HUGGINS MD Dec 24, 2024 08:25
--- NOTE | 2024-12-24 08:28 | DVHDS2 ---
Discharge Summary Date of Admission December 21, 2024 at 05:07 Date of Discharge: Dec 24, 2024 Admitting Diagnosis Acute alcoholic withdrawal Wounds: Right little finger fracture Labs/Diagnostic Data: Laboratory Results Test 12/22/24 04:21 12/21/24 03:00 12/21/24 01:45 12/20/24 23:53 White Blood Count 5.3 10^3/uL (4.4-10.8) Red Blood Count 3.86 10^6/uL (4.5-5.90) Hemoglobin 12.2 g/dL (13.5-17.5) Hematocrit 36.5 % (41.0-53.0) Mean Corpuscular Volume 94.5 fL (80.0-100.0) Mean Corpuscular Hemoglobin 31.6 pg (28.0-32.0) Mean Corpuscular Hemoglobin Concent 33.4 g/dL (32.0-36.0) Red Cell Distribution Width 15.1 % (11.8-14.3) Platelet Count 139 10^3/uL (140-450) Mean Platelet Volume 9.3 fL (6.9-10.8) Neutrophils (%) (Auto) 66.9 % (37.0-80.0) Lymphocytes (%) (Auto) 21.3 % (10.0-50.0) Monocytes (%) (Auto) 9.9 % (0.0-12.0) Eosinophils (%) (Auto) 1.2 % (0.0-7.0) Basophils (%) (Auto) 0.7 % (0.0-2.0) Neutrophils # (Auto) 3.5 10 ^3/uL (1.6-8.6) Lymphocytes # (Auto) 1.1 10 ^3/uL (0.4-5.4) Monocytes # (Auto) 0.5 10 ^3/uL (0-1.3) Eosinophils # (Auto) 0.1 10 ^3/uL (0-0.8) Basophils # (Auto) 0 10 ^3/uL (0-0.2) Nucleated Red Blood Cells 0.1 % Sodium Level 141 mmol/L (136-145) Potassium Level 3.3 mmol/L (3.5-5.1) Chloride Level 107 mmol/L (98-107) Carbon Dioxide Level 25 mmol/L (20-31) Anion Gap 9 (5-15) Blood Urea Nitrogen < 5 mg/dL (9-23) Creatinine 0.69 mg/dL (0.700-1.30) Glomerular Filtration Rate Calc 122 mL/min (>90) BUN/Creatinine Ratio 7.2 (10.0-20.0) Serum Glucose 91 mg/dL (74-106) Calcium Level 9.8 mg/dL (8.7-10.4) Total Bilirubin 0.5 mg/dL (0.2-1.0) Aspartate Amino Transferase (AST) 17 U/L (13-40) Alanine Aminotransferase (ALT) 11 U/L (7-40) Alkaline Phosphatase 114 U/L (46-116) Total Protein 7.2 g/dL (5.7-8.2) Albumin 4.3 g/dL (3.2-4.8) Urine Color Colorless (Yellow) Urine Clarity Clear (Clear) Urine pH 5.5 (5.0-9.0) Urine Specific [place] 1.007 (1.001-1.035) Urine Protein Negative (Negative) Urine Ketones Negative (Negative) Urine Blood Negative /uL (Negative) Urine Nitrite Negative (Negative) Urine Bilirubin Negative (Negative) Urine Urobilinogen Normal mg/dL (Negative) Urine Leukocyte Esterase Negative /uL (Negative) Urine RBC <1 /hpf (0 - 3) Urine Microscopic WBC < 1 /HPF (0-3) Urine Squamous Epithelial Cells None seen /hpf (<5) Urine Bacteria None seen /hpf (None Seen) Urine Glucose Normal mg/dL (Normal) Lactic Acid Level 1.9 mmol/L (0.4-2.0) Prothrombin Time 10.1 sec (9.3-11.8) Prothrombin Time INR 0.95 (0.9-1.15) Activated Partial Thromboplast Time < 20.0 SEC (24.5-34.5) Plasma/Serum Blood Alcohol < 3.0 mg/dL (<10) Other Laboratory Tests 12/22/24 04:21 Brief Hx & Hospital Course: 39-year-old male with a chronic alcohol abuse came in for alcoholic withdrawal admitted treated with Ativan thiamine folic acid possible aspiration pneumonia treated with cefepime history of seizures using Keppra which was continued patient complained of pain in the right 5th finger had a minimally displaced fracture seen by orthopedic and ulnar gutter splint was applied and he will follow up in two weeks At the time of discharge is alert oriented with a stable vital signs. Medications transmitted to the pharmacy Consults/Reason for consult Orthopedic Operations or Procedures Ulnar gutter splint Condition at Discharge: Fair Final Diagnosis/Problems List Acute toxic encephalopathy Acute alcoholic withdrawal: Ativan p.r.n. Chronic current alcohol abuse: Counseling thiamine folic acid Possible aspiration pneumonia: Cefepime History of seizures on Keppra CT head negative Chest x-ray neg Minimally displaced fracture proximal phalanx right 5th finger: Ulnar gutter splint applied by ortho and advised outpatient follow up in two weeks Discharge Disposition: Home Discharge Instruct/Medications Diet: Regular Activity: Light activity Follow Up/Referral: Stop drinking alcohol Follow up with the ortho clinic in two weeks Medications: Thiamine Folic acid Librium [place] Transmitted to [facility] (Time taken for discharge summary 39 minutes) Discharge Statement: "Patient was advised to return to the ER or call 911 if any headaches, dizziness, shortness of breath, chest pain, abdominal pain, bleeding, fevers, or worsening of medical condition. Patient was counseled about treatment plan, medications, possible side effects, patientverbalized understanding. All questions were answered to the best of my ability. This discharge took greater then 30 minutes in planning, reviewing documentation, counseling the patient, and discussing with other team members." ASSESSMENT ASSESSMENT Hospital Course Improved Assessment Acute toxic encephalopathy Acute alcoholic withdrawal: Ativan p.r.n. Chronic current alcohol abuse: Counseling thiamine folic acid Possible aspiration pneumonia: Cefepime History of seizures on Keppra CT head negative Chest x-ray neg Minimally displaced fracture proximal phalanx right 5th finger: Ulnar gutter splint applied by ortho and advised outpatient follow up in two weeks Date of Service: Dec 24, 2024 Billing Provider: DAVY HUGGINS MD Common Visit Codes: 30002-ULN/OBS DISCH DAY >30min DAVY HUGGINS MD Dec 24, 2024 08:28
[2024-12-24 09:00] VITALS: BP 117/80; PULSE 57; RESP 15; TEMP 97.5; O2SAT 99
[2024-12-24 10:17] VITALS: TEMP 36.4
== END 2024-12-24 11:52 | disposition home or self-care (01) | DRG 53 ==
LOC: EDBD 22:41 → ER 22:41 → OVERFLOW 12-21 05:07 → TELE-CENTR 12-21 11:33
PROVIDERS: ADMIT Family Medicine; ATTEND Family Medicine
DX: G40.909 Epilepsy, unspecified, not intractable, without status epilepticus (principal); J69.0 Pneumonitis due to inhalation of food and vomit; G92.8 Other toxic encephalopathy; F10.231 Alcohol dependence with withdrawal delirium; Y90.9 Presence of alcohol in blood, level not specified; Z79.899 Other long term (current) drug therapy
CPT/HCPCS: 36415; 70450; 71045; 73130; 80053; 80320; 81001; 83605; 85025; 85610; 85730; 87040; 87081; 96365; 96375; 99291; G0378; J0131; J7060

== ENCOUNTER 2025-03-02 07:12 | Emergency (ER) | payer MEDICAID ==
[~2025-03-02] VITALS: Ht 162.6 cm; Wt 70.0 kg
[~2025-03-02 07:12] MED LIST changes: +CHL25C PO; +FOLI-119 PO; +HYDR-4902 PO; +THIA100T13 PO
--- NOTE | 2025-03-02 07:19 | ED.PDOC ---
History of Present Illness HPI Comments 40-year-old male brought by paramedics because he was found wandering on the street intoxicated. Patient just was discharged from this ER 6 hours ago. History of alcohol abuse seizure. Patient alert communicated without difficulty. No injuries. Vitals stable on arrival. Time Seen by : 07:14 Primary Care Provider: UNKNOWN Reviewed Notes: Nurses Notes, Medications, Allergies Allergies: Coded Allergies: NO KNOWN ALLERGIES (Unverified , 02/09/22) Home Meds Active Scripts Hydrocodone-Acetaminophen (Hydrocodone Bitartrate/AC 5-325 mg) 1 Tab Tab, 1 TAB PO TID PRN, #20 TAB Prov:DAVY HUGGINS MD 12/24/24 Chlordiazepoxide Hcl (Librium) 25 Mg Cp, 25 MG PO TID, #20 CAP Prov:DAVY HUGGINS MD 12/24/24 Folic Acid (Folic Acid) 1 Mg Tab, 1 MG PO DAILY, #30 TAB Prov:DAVY HUGGINS MD 12/24/24 Thiamine HCl (Thiamine Hydrochloride) 100 Mg Tab, 100 MG PO DAILY, #30 TAB Prov:DAVY HUGGINS MD 12/24/24 Sulfamethoxazole W/Trimethopri (Bactrim Ds Tablet) 1 Tab Tb, 1 TAB PO BID for 10 Days, #20 TAB 0 Refills Prov:MADELINE RAMIREZ [employer] 08/07/22 Cephalexin ( Keflex 500) 500 Mg Cap, 1 CAP PO QID for 10 Days, #40 CAP 0 Refills Prov:MADELINE RAMIREZ [facility] 08/07/22 Reported Medications Levetiracetam (Keppra) 500 Mg Tab, 500 MG PO BIDPRN for 30 Days, MG 07/31/24 Information Source: Patient, Emergency Med Personnel Mode of Arrival: EMS Severity: Moderate Timing: Hours Duration: Since onset Past Medical History PAST MEDICAL HISTORY: Seizures Surgical History: Denies all surgeries Family History Family History: No family hx of Cancer, No family hx of DM, No family hx of Heart echo, No family hx of HTN, No family hx ofKidney echo, No family hx of Liver echo, No family hx of Lung echo, No family hx of Stroke Social History Smoker: Non-Smoker Alcohol: Heavy Drugs: Denies Drug Use Lives In: Home Constitutional: denies: chills, diaphoresis, fatigue, fever, malaise, sweats, weakness, others EENTM: denies: blurred vision, double vision, ear bleeding, ear discharge, ear drainage, ear pain, ear ringing, eye pain, eye redness, hearing loss, mouth pain, mouth swelling, nasal discharge, nose bleeding, nose congestion, nose pain, photophobia, tearing, throat pain, throat swelling, voice changes, others Respiratory: denies: cough, hemoptysis, orthopnea, SOB at rest, shortness of breath, SOB with excertion, stridor, wheezing, others Cardiovascular: denies: chest pain, dizzy spells, diaphoresis, Dyspnea on exertion, edema, irregular heart beat, left arm pain, lightheadedness, palpitat ions, PND, syncope, others Gastrointestinal: denies: abdomen distended, abdominal pain, blood streaked bow els, constipated, diarrhea, dysphagia, difficulty swallowing, hematemesis, melena, nausea, poor appetite, poor fluid intake, rectal bleeding, rectal pain, vomiting, others Genitourinary: denies: burning, dysuria, flank pain, frequency, hematuria, incontinence, penile discharge, penile sore, pain, testicle pain, testicle swelling, urgency, others Neurological: denies: dizziness, fainting, headache, left sided numbness, left sided weakness, numbness, paresthesia, pre-existing deficit, right sided numbness, right sided weakness, seizure, speech problems, tingling, tremors, weakness, others Musculoskeletal: denies: back pain, gout, joint pain, joint swelling, muscle pain, muscle stiffness, neck pain, others Integumetry: denies: bruises, change in color, change in hair/nails, dryness, laceration, lesions, lumps, rash, wounds, others Allergic/Immunocompromised: denies: Difficulty Healing, Frequent Infections, Hives, Itching, others Hematologic/Lymphatic: denies: anemia, blood clots, easy bleeding, easy bruising, swollen glands, others Endocrine: denies: excessive hunger, excessive sweating, excessive thirst, excessive urination, flushing, intolerance to cold, intolerance to heat, unexplained weight gain, unexplained weight loss, others Psychiatric: denies: anxiety, bipolar disorder, depression, hopeless, panic disorder, schizophrenia, sleepless, suicidal, others Physical Exam General Appearance: Moderate Distress HEENT: Normal ENT Inspection, Pharynx Normal, TMs Normal Neck: Full Range of Motion, Non-Tender, Normal, Normal Inspection Respiratory: Chest Non-Tender, Lungs Clear, No Accessory Muscle Use, No Respiratory Distress, Normal Breath Sounds Cardiovascular: No Edema, No JVD, No Murmur, No Gallop, Normal Peripheral Pulses, Regular Rate/Rhythm Breast Exam: Deferred Gastrointestinal: No Organomegaly, Non Tender, No Pulsatile Mass, Normal Bowel Sounds, Soft Genitalia: Deferred Pelvic: Deferred Rectal: Deferred Extremities: No calf tenderness, Normal capillary refill, Normal inspection, Normal range of motion, Non-tender, No pedal edema Musculoskeletal : Apperance: Normal Neurologic: Alert, travel accommodation inspector II-XII nml as Tested, No Motor Deficits, Normal Affect, Normal Mood, No Sensory Deficits Cerebellar Function: NOT DONE Reflexes: NOT DONE Skin: Dry, Normal Color, Warm Peripheral Pulses: 3+ Radial (R), 3+ Radial (L) Lymphatic: No Adenopathy Was a procedure done? Was a procedure done?: No Differential Dx Considerations may include: Alcohol abuse X-Ray, Labs, Meds, VS Patient alert. Has been drinking a lot. Vitals stable. Answering questions. Just discharged from this hospital. Reviewed his previous visit. Establish intravenous access. Was given fluids. Was given thiamine. Explained to the patient. Continue monitoring. Time of 1ST Reevaluation: 07:17 Reevaluation 1ST: Unchanged Patient Education/Counseling: Diagnosis, Treatment, Prognosis, Need For Follow Up Family Education/Counseling: No Family Present SEPSIS Sepsis Screen Physician Orders Blood Alcohol (03/02/25 07:14) Thiamine Inj (03/02/25 07:15) 1 Liter Bolus Of 0.9% Ns (03/02/25 07:15) Departure 1 Departure Time of Disposition: 07:18 Impression: Primary Impression: Alcohol abuse Disposition: 30 STILL A PATIENT Condition: Good Discharged With: Self Critical Care Note Critical Care Time?: No Stability Stability form required: No Heart Score Heart Score: Heart Score Response (Comments) Value History N/A 0 EKG N/A 0 Age N/A 0 Risk Factors N/A 0 Troponin N/A 0 Total 0 ASHLEY BOX MD Mar 02, 2025 07:19
[2025-03-02 07:27] VITALS: BP 124/85; PULSE 88; RESP 24; TEMP 98.6; O2SAT 98
[2025-03-02] MEDS: SODIUM CHLORIDE 0.9% 1,000 ML IV ONE (09:47)
[2025-03-02] MEDS: THIAMINE 100mg/ml INJ (200mg/2ml VIAL) IV ONE (09:47)
== END 2025-03-02 23:29 | disposition left against medical advice (07) ==
LOC: ER 07:12 → EDBD 07:12 → ER 23:29
DX: F10.10 Alcohol abuse, uncomplicated (principal); Z79.899 Other long term (current) drug therapy
CPT/HCPCS: 36415; 80320

== ENCOUNTER 2025-03-27 23:34 | Emergency (ER) | payer MEDICAID ==
[~2025-03-27] VITALS: Ht 162.6 cm; Wt 66.0 kg
[2025-03-27 23:34] VITALS: BP 122/70; PULSE 88; RESP 18; TEMP 98; O2SAT 98
--- NOTE | 2025-03-28 00:21 | ED.PDOC ---
History of Present Illness HPI Comments 40-year-old male who came to ER via EMS for alcohol intoxication. Patient is seen here multiple times for alcohol intoxication. Has history of chronic alcohol abuse. Was found intoxicated with alcohol, a block away from his house. Chief Complaint: ETOH Time Seen by MD: 00:14 Primary Care Provider: UNKNOWN Reviewed Notes: Nurses Notes Allergies: Coded Allergies: NO KNOWN ALLERGIES (Unverified , 02/09/22) Home Meds Active Scripts Hydrocodone-Acetaminophen (Hydrocodone Bitartrate/AC 5-325 mg) 1 Tab Tab, 1 TAB PO TID PRN, #20 TAB Prov:DAVY HUGGINS MD 12/24/24 Chlordiazepoxide Hcl (Librium) 25 Mg Cp, 25 MG PO TID, #20 CAP Prov:DAVY HUGGINS MD 12/24/24 Folic Acid (Folic Acid) 1 Mg Tab, 1 MG PO DAILY, #30 TAB Prov:DAVY HUGGINS MD 12/24/24 Thiamine HCl (Thiamine Hydrochloride) 100 Mg Tab, 100 MG PO DAILY, #30 TAB Prov:DAVY HUGGINS MD 12/24/24 Sulfamethoxazole W/Trimethopri (Bactrim Ds Tablet) 1 Tab Tb, 1 TAB PO BID for 10 Days, #20 TAB 0 Refills Prov:MADELINE RAMIREZ DEBUG TECHNICIAN 08/07/22 Cephalexin ( Keflex 500) 500 Mg Cap, 1 CAP PO QID for 10 Days, #40 CAP 0 Refills Prov:MADELINE RAMIREZ [facility] 08/07/22 Reported Medications Levetiracetam (Keppra) 500 Mg Tab, 500 MG PO BIDPRN for 30 Days, MG 07/31/24 Information Source: Patient Mode of Arrival: EMS Severity: Moderate Timing: Hours Duration: Since onset Past Medical History PAST MEDICAL HISTORY: Seizures Surgical History: Denies all surgeries Family History Family History: No family hx of Cancer, No family hx of DM, No family hx of Heart echo, No family hx of HTN, No family hx ofKidney echo, No family hx of Liver echo, No family hx of Lung echo, No family hx of Stroke Social History Smoker: Non-Smoker Alcohol: Heavy Drugs: Denies Drug Use Lives In: Home Constitutional: denies: chills, diaphoresis, fatigue, fever, malaise, sweats, weakness, others EENTM: denies: blurred vision, double vision, ear bleeding, ear discharge, ear drainage, ear pain, ear ringing, eye pain, eye redness, hearing loss, mouth pain, mouth swelling, nasal discharge, nose bleeding, nose congestion, nose pain, photophobia, tearing, throat pain, throat swelling, voice changes, others Respiratory: denies: cough, hemoptysis, orthopnea, SOB at rest, shortness of breath, SOB with excertion, stridor, wheezing, others Cardiovascular: denies: chest pain, dizzy spells, diaphoresis, Dyspnea on exertion, edema, irregular heart beat, left arm pain, lightheadedness, palpitations, PND, syncope, others Gastrointestinal: denies: abdomen distended, abdominal pain, blood streaked bowels, constipated, diarrhea, dysphagia, difficulty swallowing, hematemesis, melena, nausea, poor appetite, poor fluid intake, rectal bleeding, rectal pain, vomiting, others Genitourinary: denies: burning, dysuria, flank pain, frequency, hematuria, incontinence, penile discharge, penile sore, pain, testicle pain, testicle swelling, urgency, others Neurological: denies: dizziness, fainting, headache, left sided numbness, left sided weakness, numbness, paresthesia, pre-existing deficit, right sided numbness, right sided weakness, seizure, speech problems, tingling, tremors, weakness, others Musculoskeletal: denies: back pain, gout, joint pain, joint swelling, muscle pain, muscle stiffness, neck pain, others Integumetry: denies: bruises, change in color, change in hair/nails, dryness, laceration, lesions, lumps, rash, wounds, others Allergic/Immunocompromised: denies: Difficulty Healing, Frequent Infections, Hives, Itching, others Hematologic/Lymphatic: denies: anemia, blood clots, easy bleeding, easy bruising, swollen glands, others Endocrine: denies: excessive hunger, excessive sweating, excessive thirst, excessive urination, flushing, intolerance to cold, intolerance to heat, unexplained weight gain, unexplained weight loss, others Psychiatric: reports: others (Intoxicated with alcohol) Physical Exam General Appearance: No Apparent Distress, Normal HEENT: Normal ENT Inspection, Pharynx Normal, TMs Normal Neck: Full Range of Motion, Non-Tender, Normal, Normal Inspection Respiratory: Chest Non-Tender, Lungs Clear, No Accessory Muscle Use, No Respiratory Distress, Normal Breath Sounds Cardiovascular: No Edema, No JVD, No Murmur, No Gallop, Normal Peripheral Pulses, Regular Rate/Rhythm Breast Exam: Deferred Gastrointestinal: No Organomegaly, Non Tender, No Pulsatile Mass, Normal Bowel Sounds, Soft Genitalia: Deferred Pelvic: Deferred Rectal: Deferred Extremities: No calf tenderness, Normal capillary refill, Normal inspection, Normal range of motion, Non-tender, No pedal edema Musculoskeletal : Apperance: Normal Neurologic: Alert, slitter operator II-XII nml as Tested, No Motor Deficits, Normal Affect, Normal Mood, No Sensory Deficits Cerebellar Function: Normal Reflexes: Normal Skin: Dry, Normal Color, Warm Lymphatic: No Adenopathy Was a procedure done? Was a procedure done?: No Differential Dx Considerations may include: Anemia, electrolyte imbalance, seizures, alcohol intoxication X-Ray, Labs, Meds, VS Vital Signs Date Time Temp Pulse Resp B/P (MAP) Pulse Ox O2 Delivery O2 Flow Rate FiO2 03/27/25 23:34 98.0 88 18 122/70 98 98.0 Lab Test 03/28/25 00:19 Range/Units White Blood Count 4.5 4.4-10.8 10^3/uL Red Blood Count 4.92 4.5-5.90 10^6/uL Hemoglobin 14.5 13.5-17.5 g/dL Hematocrit 43.5 41.0-53.0 % Mean Corpuscular Volume 88.3 80.0-100.0 fL Mean Corpuscular Hemoglobin 29.5 28.0-32.0 pg Mean Corpuscular Hemoglobin Concent 33.5 32.0-36.0 g/dL Red Cell Distribution Width 15.9 H 11.8-14.3 % Platelet Count 254 140-450 10^3/uL Mean Platelet Volume 7.4 6.9-10.8 fL Neutrophils (%) (Auto) 51.0 37.0-80.0 % Lymphocytes (%) (Auto) 43.6 10.0-50.0 % Monocytes (%) (Auto) 4.6 0.0-12.0 % Eosinophils (%) (Auto) 0.4 0.0-7.0 % Basophils (%) (Auto) 0.4 0.0-2.0 % Neutrophils # (Auto) 2.3 1.6-8.6 10 ^3/uL Lymphocytes # (Auto) 2.0 0.4-5.4 10 ^3/uL Monocytes # (Auto) 0.2 0-1.3 10 ^3/uL Eosinophils # (Auto) 0 0-0.8 10 ^3/uL Basophils # (Auto) 0 0-0.2 10 ^3/uL Nucleated Red Blood Cells 0.1 % Sodium Level 145 136-145 mmol/L Potassium Level 3.9 3.5-5.1 mmol/L Chloride Level 111 H 98-107 mmol/L Carbon Dioxide Level 21 20-31 mmol/L Anion Gap 13 5-15 Blood Urea Nitrogen < 5 L 9-23 mg/dL Creatinine 0.82 0.700-1.30 mg/dL Glomerular Filtration Rate Calc 115 >90 mL/min BUN/Creatinine Ratio 6.1 L 10.0-20.0 Serum Glucose 90 74-106 mg/dL Calcium Level 8.8 8.7-10.4 mg/dL Total Bilirubin 0.3 0.2-1.0 mg/dL Aspartate Amino Transferase (AST) 20 13-40 U/L Alanine Aminotransferase (ALT) 11 7-40 U/L Alkaline Phosphatase 190 H 46-116 U/L Total Protein 7.8 5.7-8.2 g/dL Albumin 4.6 3.2-4.8 g/dL Plasma/Serum Blood Alcohol 325.0 H <10 mg/dL Time of 1ST Reevaluation: 00:10 Reevaluation 1ST: Unchanged Patient Education/Counseling: Diagnosis, Treatment Family Education/Counseling: No Family Present SEPSIS Sepsis Screen Date sepsis recognized/suspect: Mar 27, 2025 Time Sepsis recognized/suspect: 2333 Recent Procedure: No On Antibiotic Therapy: No Respiratory Rate >20: No Heart Rate >90: No Temp<36 C (96.8 F) or >38.3 C: No SBP <90 or MAP <65 mmHG: No New Acute Mental Status Change: No Is the patient on CPAP, BIPAP,: No Vital Signs Date Time Temp Pulse Resp B/P (MAP) Pulse Ox O2 Delivery O2 Flow Rate FiO2 03/27/25 23:34 98.0 88 18 122/70 98 98.0 Laboratory Tests Test 03/28/25 00:19 White Blood Count 4.5 10^3/uL (4.4-10.8) Departure 1 Departure Time of Disposition: 02:00 Impression: Primary Impression: Alcohol abuse Additional Impression: Alcohol intoxication Disposition: 01 HOME / SELF CARE / HOMELESS Condition: Stable Discharged With: Self Comments Patient is GCS of 15, vital signs are stable after ED observation. Patient is ambulatory with steady gait. Critical Care Note Critical Care Time?: No Stability Stability form required: No Heart Score Heart Score: Heart Score Response (Comments) Value History N/A 0 EKG N/A 0 Age N/A 0 Risk Factors N/A 0 Troponin N/A 0 Total 0 I personally scribed for DOUGLAS MAE MD ([email or web address]) on 03/28/25 at 00:21. Electronically submitted by Manuel Adams ([email or web address]). DOUGLAS MAE MD Mar 28, 2025 00:21
[2025-03-28 00:33] LABS: Hematocrit 43.5 % (41.0-53.0); Hemoglobin 14.5 g/dL (13.5-17.5); Mean Corpuscular Hemoglobin 29.5 pg (28.0-32.0); Mean Corpuscular Volume 88.3 fL (80.0-100.0); Nucleated Red Blood Cells % 0.1 %
[2025-03-28 00:54] LABS: Alanine Aminotransferase 11 U/L (7-40); Albumin 4.6 g/dL (3.2-4.8); Anion Gap 13 (5-15); Calcium 8.8 mg/dL (8.7-10.4); Carbon Dioxide 21 mmol/L (20-31); Glucose 90 mg/dL (74-106); Potassium 3.9 mmol/L (3.5-5.1); Sodium 145 mmol/L (136-145); Total Protein 7.8 g/dL (5.7-8.2)
[2025-03-28 01:07] LABS: Alkaline Phosphatase 190 U/L (46-116); BUN/Creatinine Ratio 6.1 (10.0-20.0); Bilirubin, Total 0.3 mg/dL (0.2-1.0); Blood Urea Nitrogen < 5 mg/dL (9-23); Chloride 111 mmol/L (98-107)
== END 2025-03-28 03:07 | disposition home or self-care (01) ==
LOC: EDBD 23:34 → ER 23:34
DX: F10.229 Alcohol dependence with intoxication, unspecified (principal); Z79.899 Other long term (current) drug therapy; Y90.9 Presence of alcohol in blood, level not specified
CPT/HCPCS: 36415; 80053; 80320; 85025

== ENCOUNTER 2025-06-30 12:38 | Emergency (ER) | payer MEDICAID ==
[~2025-06-30] VITALS: Ht 172.7 cm; Wt 86.0 kg
--- NOTE | 2025-06-30 13:11 | ED.PDOC ---
Altered Mental Status HPI Comments This is a 40 year old male HIRENA presenting to the ED with chief complaint of ETOH intoxication. EMS reports [place], being suspected to have fallen and hit his head against the concrete sidewalk. EMS relays patient is able to follow instructions, but is intoxicated at this time. Patient denies any N/V, LOC, or chest pain. Chief Complaint: ALOC Time Seen by MD: 13:09 Primary Care Provider: UNKNOWN Reviewed Notes: Nurses Notes, Medications, Allergies Allergies: Coded Allergies: NO KNOWN ALLERGIES (Unverified , 02/09/22) Home Meds Active Scripts Hydrocodone-Acetaminophen (Hydrocodone Bitartrate/AC 5-325 mg) 1 Tab Tab, 1 TAB PO TID PRN, #20 TAB Prov:DAVY HUGGINS MD 12/24/24 Chlordiazepoxide Hcl (Librium) 25 Mg Cp, 25 MG PO TID, #20 CAP Prov:DAVY HUGGINS MD 12/24/24 Folic Acid (Folic Acid) 1 Mg Tab, 1 MG PO DAILY, #30 TAB Prov:DAVY HUGGINS MD 12/24/24 Thiamine HCl (Thiamine Hydrochloride) 100 Mg Tab, 100 MG PO DAILY, #30 TAB Prov:DAVY HUGGINS MD 12/24/24 Sulfamethoxazole W/Trimethopri (Bactrim Ds Tablet) 1 Tab Tb, 1 TAB PO BID for 10 Days, #20 TAB 0 Refills Prov:MADELINE RAMIREZ [employer] 08/07/22 Cephalexin ( Keflex 500) 500 Mg Cap, 1 CAP PO QID for 10 Days, #40 CAP 0 Refills Prov:MADELINE RAMIREZ [facility] 08/07/22 Reported Medications Levetiracetam (Keppra) 500 Mg Tab, 500 MG PO BIDPRN for 30 Days, MG 07/31/24 Information Source: Patient Mode of Arrival: EMS Severity: Moderate Timing: Hours Duration: Since onset Prehospital treatment: None Quality: Decreased Alertness Recent: Other (ETOH abuse) Past Medical History PAST MEDICAL HISTORY: Seizures Past Medical History (Other): Brain Bleed Surgical History: Denies all surgeries Family History Family History: No family hx of Cancer, No family hx of DM, No family hx of Heart echo, No family hx of HTN, No family hx ofKidney echo, No family hx of Liver echo, No family hx of Lung echo, No family hx of Stroke Social History Smoker: Non-Smoker Alcohol: Heavy Drugs: Denies Drug Use Lives In: Home Constitutional: denies: chills, diaphoresis, fatigue, fever, malaise, sweats, weakness, others EENTM: denies: blurred vision, double vision, ear bleeding, ear discharge, ear drainage, ear pain, ear ringing, eye pain, eye redness, hearing loss, mouth pain, mouth swelling, nasal discharge, nose bleeding, nose congestion, nose pain, photophobia, tearing, throat pain, throat swelling, voice changes, others Respiratory: denies: cough, hemoptysis, orthopnea, SOB at rest, shortness of breath, SOB with excertion, stridor, wheezing, others Cardiovascular: denies: chest pain, dizzy spells, diaphoresis, Dyspnea on exertion, edema, irregular heart beat, left arm pain, lightheadedness, palpitations, PND, syncope, others Gastrointestinal: denies: abdomen distended, abdominal pain, blood streaked bowels, constipated, diarrhea, dysphagia, difficulty swallowing, hematemesis, melena, nausea, poor appetite, poor fluid intake, rectal bleeding, rectal pain, vomiting, others Genitourinary: denies: burning, dysuria, flank pain, frequency, hematuria, incontinence, penile discharge, penile sore, pain, testicle pain, testicle swelling, urgency, others Neurological: reports: headache; denies: dizziness, fainting, left sided numbness, left sided weakness, numbness, paresthesia, pre-existing deficit, right sided numbness, right sided weakness, seizure, speech problems, tingling, tremors, weakness, others Musculoskeletal: denies: back pain, gout, joint pain, joint swelling, muscle pain, muscle stiffness, neck pain, others Integumetry: denies: bruises, change in color, change in hair/nails, dryness, laceration, lesions, lumps, rash, wounds, others Allergic/Immunocompromised: denies: Difficulty Healing, Frequent Infections, Hives, Itching, others Hematologic/Lymphatic: denies: anemia, blood clots, easy bleeding, easy bruising, swollen glands, others Endocrine: denies: excessive hunger, excessive sweating, excessive thirst, excessive urination, flushing, intolerance to cold, intolerance to heat, unexplained weight gain, unexplained weight loss, others Psychiatric: denies: anxiety, bipolar disorder, depression, hopeless, panic disorder, schizophrenia, sleepless, suicidal, others Unable to Obtain due to: Altered Mental Status All Other Systems: Reviewed and Negative Physical Exam General Appearance: No Apparent Distress, Normal, Other (Intoxicated) HEENT: Normal ENT Inspection, Pharynx Normal, TMs Normal Neck: Full Range of Motion, Non-Tender, Normal, Normal Inspection Respiratory: Chest Non-Tender, Lungs Clear, No Accessory Muscle Use, No Respiratory Distress, Normal Breath Sounds Cardiovascular: No Edema, No JVD, No Murmur, No Gallop, Normal Peripheral Pulses, Regular Rate/Rhythm Breast Exam: Deferred Gastrointestinal: No Organomegaly, Non Tender, No Pulsatile Mass, Normal Bowel Sounds, Soft Genitalia: Deferred Pelvic: Deferred Rectal: Deferred Extremities: No calf tenderness, Normal capillary refill, Normal inspection, Normal range of motion, Non-tender, No pedal edema Musculoskeletal : Apperance: Normal Neurologic: Alert, documentation nurse II-XII nml as Tested, No Motor Deficits, Normal Affect, Normal Mood, No Sensory Deficits Cerebellar Function: Normal Reflexes: Normal Skin: Dry, Normal Color, Warm Lymphatic: No Adenopathy Was a procedure done? Was a procedure done?: No Differential Diagnosis (ALOC) Differential Diagnosis: Encephalopathy, ETOH Intoxication X-Ray, Labs, Meds, VS Vital Signs Date Time Temp Pulse Resp B/P (MAP) Pulse Ox O2 Delivery O2 Flow Rate FiO2 06/30/25 12:38 97.9 68 18 148/73 97 97.9 Lab Test 07/01/25 03:51 Range/Units White Blood Count 6.3 4.4-10.8 10^3/uL Red Blood Count 5.14 4.5-5.90 10^6/uL Hemoglobin 15.4 13.5-17.5 g/dL Hematocrit 46.8 41.0-53.0 % Mean Corpuscular Volume 90.9 80.0-100.0 fL Mean Corpuscular Hemoglobin 30.0 28.0-32.0 pg Mean Corpuscular Hemoglobin Concent 33.0 32.0-36.0 g/dL Red Cell Distribution Width 19.4 H 11.8-14.3 % Platelet Count 141 140-450 10^3/uL Mean Platelet Volume 8.2 6.9-10.8 fL Neutrophils (%) (Auto) 71.7 37.0-80.0 % Lymphocytes (%) (Auto) 21.8 10.0-50.0 % Monocytes (%) (Auto) 5.3 0.0-12.0 % Eosinophils (%) (Auto) 0.6 0.0-7.0 % Basophils (%) (Auto) 0.6 0.0-2.0 % Neutrophils # (Auto) 4.5 1.6-8.6 10 ^3/uL Lymphocytes # (Auto) 1.4 0.4-5.4 10 ^3/uL Monocytes # (Auto) 0.3 0-1.3 10 ^3/uL Eosinophils # (Auto) 0 0-0.8 10 ^3/uL Basophils # (Auto) 0 0-0.2 10 ^3/uL Nucleated Red Blood Cells 0.1 % Sodium Level 146 H 136-145 mmol/L Potassium Level 3.7 3.5-5.1 mmol/L Chloride Level 107 98-107 mmol/L Carbon Dioxide Level 23 20-31 mmol/L Anion Gap 16 H 5-15 Blood Urea Nitrogen 8 L 9-23 mg/dL Creatinine 0.70 0.700-1.30 mg/dL Glomerular Filtration Rate Calc 121 >90 mL/min BUN/Creatinine Ratio 11.4 10.0-20.0 Serum Glucose 74 74-106 mg/dL Calcium Level 9.3 8.7-10.4 mg/dL Magnesium Level 1.7 1.6-2.6 mg/dL Total Bilirubin 0.5 0.2-1.0 mg/dL Aspartate Amino Transferase (AST) 74 H 13-40 U/L Alanine Aminotransferase (ALT) 26 7-40 U/L Alkaline Phosphatase 189 H 46-116 U/L Total Protein 8.5 H 5.7-8.2 g/dL Albumin 4.7 3.2-4.8 g/dL Plasma/Serum Blood Alcohol 225.9 H <10 mg/dL Time of 1ST Reevaluation: 14:06 Reevaluation 1ST: Unchanged Time of 2ND Reevaluation: 08:41 Reevaluation 2ND: Improved Patient Education/Counseling: Diagnosis Family Education/Counseling: No Family Present Assigned to Dr. dr. Hartley. Patient is awaiting reassessment and repeat ETOH level. Re-evaluation done by me at 8:40 a.m.. Patient is ambulating with a steady gait without assistance. Answering questions. Refusing to stay for a repeat alcohol level. Patient has decision-making capability at this time. Medically cleared for discharge. SEPSIS Sepsis Screen Date sepsis recognized/suspect: Jun 30, 2025 Time Sepsis recognized/suspect: 1259 Recent Procedure: No On Antibiotic Therapy: No Respiratory Rate >20: No Heart Rate >90: No Temp<36 C (96.8 F) or >38.3 C: No SBP <90 or MAP <65 mmHG: No New Acute Mental Status Change: No Is the patient on CPAP, BIPAP,: No Physician Orders Head Without Contrast (06/30/25 13:45) Vital Signs Date Time Temp Pulse Resp B/P (MAP) Pulse Ox O2 Delivery O2 Flow Rate FiO2 06/30/25 12:38 97.9 68 18 148/73 97 97.9 Laboratory Tests Test 07/01/25 03:51 White Blood Count 6.3 10^3/uL (4.4-10.8) Departure 1 Departure Time of Disposition: 06:50 Impression: Primary Impression: Alcohol intoxication Additional Impression: Homelessness Disposition: 01 HOME / SELF CARE / HOMELESS Condition: Stable Discharged With: Self Critical Care Note Critical Care Time?: No Stability Stability form required: No Heart Score Heart Score: Heart Score Response (Comments) Value History N/A 0 EKG N/A 0 Age N/A 0 Risk Factors N/A 0 Troponin N/A 0 Total 0 I personally scribed for KIERSTEN WELLS MD ([email or web address]) on 06/30/25 at 13:11. Electronically submitted by Tom Torres ([email or web address]). KIERSTEN WELLS MD Jun 30, 2025 13:11 FLORA FARRELL DO Jul 01, 2025 06:50 JAVIER HARTLEY MD Jul 01, 2025 08:42
--- NOTE | 2025-06-30 14:19 | DVH ---
Indication: ams, falls Comparison: CT HEAD WITHOUT CONTRAST on DOS: 12/21/24, CT HEAD WITHOUT CONTRAST on DOS: 07/30/24, CT HEAD WITHOUT CONTRAST on DOS: 07/21/24, CT HEAD WITHOUT CONTRAST on DOS: 02/15/23, CT HEAD WITHOUT CONTRAST on DOS: 12/17/22 Technique: Utilizing a multislice CT scanner, a CT scan of the brain was performed without intravenous contrast. Coronal and sagittal reformatted images. All CT scans at this facility use dose modulation, iterative reconstruction, and/or weight based dosing when appropriate to reduce radiation dose to as low as reasonably achievable. Findings: There is no acute infarct, intracranial hemorrhage, or mass effect. There is no hydrocephalus or significant midline shift. There is mild chronic microvascular ischemic changes and mild parenchymal volume loss. No acute, depressed calvarial fractures. Moderate left anterior frontal scalp hematoma. Scattered paranasal sinus fluid. Impression: 1. No acute intracranial hemorrhage or mass effect. 2. Moderate left anterior frontal scalp hematoma.
[2025-07-01 03:58] LABS: Hematocrit 46.8 % (41.0-53.0); Hemoglobin 15.4 g/dL (13.5-17.5); Mean Corpuscular Hemoglobin 30.0 pg (28.0-32.0); Mean Corpuscular Volume 90.9 fL (80.0-100.0); Nucleated Red Blood Cells % 0.1 %
[2025-07-01 04:16] LABS: Alanine Aminotransferase 26 U/L (7-40); Albumin 4.7 g/dL (3.2-4.8); Anion Gap 16 (5-15); BUN/Creatinine Ratio 11.4 (10.0-20.0); Calcium 9.3 mg/dL (8.7-10.4); Carbon Dioxide 23 mmol/L (20-31); Magnesium 1.7 mg/dL (1.6-2.6); Potassium 3.7 mmol/L (3.5-5.1)
[2025-07-01 04:17] LABS: Bilirubin, Total 0.5 mg/dL (0.2-1.0)
[2025-07-01 04:19] LABS: Alkaline Phosphatase 189 U/L (46-116); Blood Urea Nitrogen 8 mg/dL (9-23); Chloride 107 mmol/L (98-107); Glucose 74 mg/dL (74-106); Sodium 146 mmol/L (136-145); Total Protein 8.5 g/dL (5.7-8.2)
[2025-07-01] MEDS: SODIUM CHLORIDE 0.9% 1,000 ML IV ONE (05:00)
[2025-07-01 08:11] VITALS: BP 125/94; PULSE 90; RESP 18; TEMP 97.7; O2SAT 100
== END 2025-07-01 08:48 | disposition home or self-care (01) ==
LOC: EDUNIT# 12:38 → ER 12:38
DX: F10.129 Alcohol abuse with intoxication, unspecified (principal); R51.9 Headache, unspecified; Z59.00 Homelessness unspecified; Z86.73 Personal history of transient ischemic attack (TIA), and cerebral infarction without residual deficits; Z79.899 Other long term (current) drug therapy; Y90.9 Presence of alcohol in blood, level not specified
CPT/HCPCS: 36415; 70450; 80053; 80320; 83735; 85025